=== PATIENT | male | born 1955 | race Caucasian/White ===

== ENCOUNTER → 2017-03-14 08:51 | Outpatient (CLI) | payer BC, SELFPAY ==
--- NOTE | 2017-03-14 08:57 | CT_ITS ---
STUDY: CT PARANASAL SINUSES WITH CONTRAST REASON FOR EXAM: Male, 62 years old. Sinusitis. RADIATION DOSAGE (If Supplied By Facility): CTDIvol = ( 33.06 ) mGy, DLP = ( 854.51 ) mGycm TECHNIQUE: The patient was scanned in a multi-detector CT scanner. High resolution transaxial imaging was performed following the intravenous administration of 100CC ml of Isovue 300 contrast material. Sagittal and coronal images were reconstructed. Individualized dose optimization techniques were used for this CT. COMPARISON: None. FINDINGS: FRONTAL SINUSES: Mild mucosal hypertrophy in the right frontal sinus. The left frontal sinus is clear. ETHMOIDAL SINUSES: Moderate mucosal hypertrophy bilaterally. MAXILLARY SINUSES: 0.6 x 0.4 cm polyp in the inferior medial aspect of the left maxillary sinus (image 72 series 4). The bilateral maxillary sinuses are otherwise clear. SPHENOIDAL SINUSES: Normal aeration of the bilateral sphenoid sinuses and there is no mucosal inflammatory disease. NASAL SEPTUM: There is rightward deviation of the nasal septum. Normal anterior cranial fossa, paco taco and cribriform plate. Normal bilateral orbital contents. There is opacification of the bilateral mastoid air cells. The visualized soft tissues are within normal limits. There is no fluid collection. There is no demonstrated enhancing soft tissue or osseous abnormality. CT/Sinus/Facial Bone WITH Contras IMPRESSION: Subcentimeter polyp in the left maxillary sinus. Mucosal hypertrophy in the bilateral ethmoid sinuses and right frontal sinus. Opacification of the mastoid air cells bilaterally. Electronically Signed: Solo Giraldo, at 10:20 EST Tel , Service support ,
[2017-03-14 09:16] LABS: CREATININE FINGERSTICK 1.4 mg/dL (0.70-1.30)
== END ==
PROVIDERS: Family Provider Family Medicine; PCP Family Medicine; Visit Provider Otolaryngology Otolaryngology/Facial Plastic Surgery
DX: H65.02 Acute serous otitis media, left ear (principal); J39.2 Other diseases of pharynx
CPT/HCPCS: 70487; Q9967

== ENCOUNTER 2017-04-21 09:57 | Day surgery (SDC) | payer BC, SELFPAY ==
--- NOTE | 2017-04-13 11:06 | EKG12_ITS ---
Test Reason : PRE-OP Blood Pressure : / mmHG Vent. Rate : 059 BPM Atrial Rate : 059 BPM P-R Int : 200 ms QRS Dur : 114 ms QT Int : 412 ms P-R-T Axes : 061 012 018 degrees QTc Int : 407 ms Sinus bradycardia Otherwise normal ECG Confirmed by MAKSIM PETERSON, RITU ([id number]), loan expeditor STUART MELENDEZ ([id number]) on 04/14/2017 4:14:51 PM Referred By: Bruce Hopkins Confirmed By:RITU SCHAEFFER MD
[2017-04-13 11:52] LABS: Anion Gap 7 (5-15); BUN 14 mg/dL (7-18); BUN/Creat Ratio 14.5 RATIO (10-20); Calcium,Total 9.3 mg/dL (8.5-10.1); Chloride 107 mmol/L (98-107); Creatinine, Serum 0.96 mg/dL (0.70-1.30); EST Glomerular Filtration Rate 83 mL/min (>60); Est Glom Filt Rate - Afr Amer 101 mL/min (>60); Glucose 85 mg/dL (74-106); Potassium 4.4 mmol/L (3.5-5.1); Sodium Level 139 mmol/L (136-145)
[2017-04-21 10:13] VITALS: BP 119/79; PULSE 69; RESP 16; TEMP 36.4; O2SAT 96; BMI 31.1
--- NOTE | 2017-04-21 10:59 | PCM.DC ---
You will use the following diet at home:: No restrictions Discharge Activity: Return to Normal Activity Call your doctor if your incision/area has: Increased Pain/ Swelling Allergies/Adverse Reactions: Allergies Sulfa (Sulfonamide Antibiotics) Allergy (Verified 04/14/17 12:55) Other CHILD, UNKNOWN Medications to take at Discharge Atorvastatin Calcium [Lipitor] 40 mg PO QHS 05/02/14 Carvedilol [Coreg (Beta Jossy)] 12.5 mg PO BID 05/02/14 Valsartan [Diovan] 80 mg PO DAILY 05/02/14 Fexofenadine HCl [Candice Allergy] 180 mg PO DAILY 04/14/17 Triamcinolone Acetonide [Nasacort] 1 spray NS DAILY 04/14/17 Primary Care Physician: Arline Medina DO [Primary Care Provider] - Please Follow Up With: Bruce Hopkins MD When: 3 weeks
--- NOTE | 2017-04-21 11:00 | PCM.OPRPT ---
Problem List (1) Eustachian tube dysfunction Status: Chronic Report of Operation Date of Procedure: 04/21/17 Pre-Operative Diagnosis: 1. chronic serous otitis, right and left. 2. eustachian tube dilation, right and left. 3. nasopharyngeal mass Post-Operative Diagnosis: 1. chronic serous otitis, right and left. 2. eustachian tube dysfunction, right and left. 3. nasopharyngeal mass Surgery/Procedure Performed:: 1. placement of pressure equalization tubes, right and left. 2. eustachian tube dilation, right and left. 3. nasopharyngeal biopsy Type of Anesthesia:: General Specimen's removed: nasopharyngeal mass Drains: none Estimated Blood Loss (mL): 2cc Description of Procedure: on the day of the procedure, after appropriate informed consent was obtained, the patient was brought to the operating room and placed in supine position on the operating room table. he was placed under general endotracheal anesthesia, the tube was secured, the eyes were taped. the bilateral nasal cavities were decongested with oxymetazoline soaked pledgets. the right ear was examined with the binocular operating microscope. a speculum was placed. the tympanic membrane was viewed in its entirety and found to be intact. a radial myringotomy was made inferiorly and a T-tube was placed. floxin otic drops were instilled. the left ear was examined with the binocular operating microscope. a speculum was placed. the tympanic membrane was viewed in its entirety and found to be intact. a radial myringotomy was made inferiorly and a T-tube was placed. floxin otic drops were instilled. a zero degree endoscope was placed into the nasopharynx. a cystic mass was biopsied and decompressed. this contained murky serous fluid. biopsies were sent. a 30 degree endoscope was inserted into the left nasal cavity. the acclarent AERA system was advanced and inserted into the left eustachian tube orifice until a soft stop was felt. this was inflated to 12atm for 2 minutes and retracted. a 30 degree endoscope was inserted into the right nasal cavity. the acclarent AERA system was advanced and inserted into the left eustachian tube orifice until a soft stop was felt. this was inflated to 12atm for 2 minutes and retracted. the patient was awoken from general anesthesia and transferred to the PACU in stable condition. Grafts/Implants Used: none
[2017-04-21] MEDS: Ciprofloxacin 0.3% 2.5ml Bottle 1 DRP (11:41)
[2017-04-21] MEDS: Oxymetazoline 0.05% 1 SPRAY SPRAY.BTL 15 SPRAY (11:50)
--- NOTE | 2017-04-21 11:50 | NASAL_PTH ---
PATIENT: KEYSHA BENNETT LOC[place] [facility] [place] U[place][id number] AGE/SX: 62/M ROOM: RE04/21/[address]: Dr. Danny Hopkins MD : 1955 BED: DIS: 04/21/2017 SPEC #: [id number] RECD: 04/21/17 13:02 STATUS: MOUSTAPHA BARBARA #: [id number] NEEMA: 04/21/17 11:[address]: Danny Hopkins DEPT: SURGICAL PATHOLOGY RECD BY: Heriberto Duarte ENTERED: 04/21/17 14:24 SP TYPE: NASAL SPEC OTHR DR: Dr. Arline Medina DO Tissues: Nasopharynx, NOS Procedures: Special Stain Group I Surgery Specimen Level IV GMS Stain (control) HEADER OPERATION: Eustachian tube dilatation BMT, bilateral; nasopharyngeal biopsy PRE-OP DIAGNOSIS: Chronic serous otitis media; disorders of eustachian tube, bilateral; neoplasm of uncertain behavior of nasopharynx TISSUE SUBMITTED: Nasopharyngeal biopsy MICROSCOPIC DIAGNOSIS Nasopharyngeal lesion, biopsy: Fragments of respiratory mucosa with acute and chronic inflammation and histiocytic reaction. Negative for malignancy. Special stain for fungi is negative for organisms; matched control is appropriate. SJ:rossy 04/22/17 MICROSCOPIC DESCRIPTION Slides are reviewed. GROSS DESCRIPTION Received in fixative is one container labeled with the patient's name and designated nasopharyngeal biopsy. The specimen consists of two irregular fragments of pink-charles soft tissue that in aggregate measure 1 x 0.6 x 0.1 cm. The specimen is totally submitted in one cassette. / AM:rossy 04/21/17 TC:3 CPT: 90081, 82135
[2017-04-21 12:15] VITALS: BP 119/79; BP 128/76; PULSE 62; RESP 18; TEMP 36.1; O2SAT 94
[2017-04-21 12:32] VITALS: BP 119/79; BP 135/73; PULSE 60; RESP 18; TEMP 36.3; O2SAT 97
[2017-04-21 13:02] VITALS: BP 119/79
== END 2017-04-21 13:10 | disposition home or self-care (01) ==
LOC: SDC 10:00 → AC 10:00
PROVIDERS: Visit Provider Otolaryngology
PROC: (CPT 69799; principal; 2017-04-21 11:20)
DX: H69.83 Other specified disorders of Eustachian tube, bilateral (principal); H65.23 Chronic serous otitis media, bilateral; D37.05 Neoplasm of uncertain behavior of pharynx; I10 Essential (primary) hypertension; E78.00 Pure hypercholesterolemia, unspecified; F17.210 Nicotine dependence, cigarettes, uncomplicated; Z79.899 Other long term (current) drug therapy; Z85.528 Personal history of other malignant neoplasm of kidney; Z96.643 Presence of artificial hip joint, bilateral
CPT/HCPCS: 00126; 42999; 69436; C9745; 36415; 80048; 88305; 88312; J3010; J7120; J2405

== ENCOUNTER → 2017-09-18 15:27 | Outpatient (CLI) | payer BC, SELFPAY | PROVIDERS: Visit Provider Otolaryngology | DX: H92.10 Otorrhea, unspecified ear (principal) | CPT/HCPCS: 87070; 87075; 87077; 87186; 87205 ==

== ENCOUNTER → 2019-05-02 10:49 | Outpatient (CLI) | payer MEDICARE, SELFPAY ==
[2019-05-06 16:24] LABS: Arsenic 7245 7 ug/L (2-23); Lead, Blood 2 ug/dL (0-4)
== END ==
PROVIDERS: Visit Provider Orthopaedic Surgery
DX: T84.84XD Pain due to internal orthopedic prosthetic devices, implants and grafts, subsequent encounter (principal); Z96.643 Presence of artificial hip joint, bilateral
CPT/HCPCS: 36415; 82175; 83655; 83825

== ENCOUNTER → 2019-06-13 09:55 | Outpatient (CLI) | payer MEDICARE, SELFPAY ==
[2019-06-13 10:36] LABS: Absolute Lymphocyte Count 4.43 X10^3/uL (0.83-4.51); Absolute Neutrophil Count 7.2 X10^3/uL (2.0-7.7); Basophil# 0.09 X10^3/uL; Basophil% 0.7 % (0-1); Eosinophil# 0.46 X10^3/uL; Eosinophils% 3.5 % (0-5); Hematocrit 49.5 % (40-54); Lymphocyte # 4.43 X10^3/ul (4.0); Lymphocyte % 33.9 % (19-41); Mean Corp Hgb Conc 32.3 g/dL (32-36); Mean Corpuscular Hgb 28.3 pg (27.0-32.0); Mean Corpuscular Volume 87.5 fL (80-94); Mean Platelet Vol. 9.1 fl (6.2-12.0); Monocyte# 0.79 X10^3/uL; NRBC Flagged by Analyzer 0 % (0-5); Neutrophil # 7.24 X10^3/uL (2.7-7.7); Neutrophil % 55.4 % (47-70); Platelet Count 556 K/mm3 (150-450); RBC Distribution Width CV 17.1 % (11.6-14.6); RBC Distribution Width SD 50.7 fl (35.1-43.9); Red Blood Count 5.66 M/mm3 (4.6-6.2); White Blood Count 13.1 K/mm3 (4.4-11.0)
[2019-06-13 10:46] LABS: Erythrocyte Sedimentation Rate 50 mm/hr (0-20)
[2019-06-13 10:57] LABS: CRP 5.72 mg/L (0.0-3.0)
== END ==
PROVIDERS: Referring Provider Specialist; Visit Provider Specialist
DX: T84.84XA Pain due to internal orthopedic prosthetic devices, implants and grafts, initial encounter (principal)
CPT/HCPCS: 36415; 85025; 85652; 86140

== ENCOUNTER → 2019-06-21 09:17 | Outpatient (CLI) | payer MEDICARE, SELFPAY ==
--- NOTE | 2019-06-21 09:24 | RAD_ITS ---
PROCEDURE: Fluoroscopic guided left hip aspiration. DATE: June 21, 2019. INDICATION: Male, 64 years old. Left hip pain. Prior left hip replacement. PHYSICIAN: Manan Alexis M.D. ACCESS SITE: Left hip. NEEDLE: 22-gauge spinal needle. FLUOROSCOPY TIME (if supplied): (0:40) minutes/seconds. One image was obtained. FINDINGS: The risks, benefits, and alternatives to the procedure were explained to the patient. The specific risks of bleeding, infection, and neurovascular injury were detailed and accepted. Witnessed informed consent was obtained. A 22-gauge spinal needle was positioned under radiographic fluoroscopic localization. Approximately 2 cc of Isovue-300 instilled for localization purposes. Aspiration was performed. No fluid was aspirated. The patient tolerated the procedure well without any immediate complications. RAD/Inj/Asp Han Jt Should/Hip/Knee IMPRESSION: No aspirate was obtained. Electronically Signed: Manan Alexis, at 10:20 EDT , Service support ,
== END ==
PROVIDERS: Referring Provider Specialist; Visit Provider Specialist
DX: T84.84XD Pain due to internal orthopedic prosthetic devices, implants and grafts, subsequent encounter (principal)
CPT/HCPCS: 20610; 77002; Q9967

== ENCOUNTER 2019-07-20 08:20 | Inpatient (IN) | payer MEDICARE, SELFPAY ==
--- NOTE | 2019-07-08 11:12 | EKG12_ITS ---
Test Reason : PREOP Blood Pressure : / mmHG Vent. Rate : 060 BPM Atrial Rate : 060 BPM P-R Int : 194 ms QRS Dur : 106 ms QT Int : 416 ms P-R-T Axes : 046 018 011 degrees QTc Int : 416 ms Normal sinus rhythm Normal ECG Confirmed by JENNY HERNANDEZ ([id number]), book editor STUART MELENDEZ ([id number]) on 07/11/2019 11:12:56 AM Referred By: MOSES CASILLAS Confirmed By:JENNY HERNANDEZ
[2019-07-08 11:28] LABS: Absolute Lymphocyte Count 3.65 X10^3/uL (0.83-4.51); Absolute Neutrophil Count 7.7 X10^3/uL (2.0-7.7); Basophil# 0.08 X10^3/uL; Basophil% 0.6 % (0-1); Eosinophils% 3.1 % (0-5); Lymphocyte # 3.65 X10^3/ul (4.0); Lymphocyte % 28.6 % (19-41); Mean Corpuscular Hgb 28.3 pg (27.0-32.0); Mean Corpuscular Volume 88.3 fL (80-94); Mean Platelet Vol. 9.3 fl (6.2-12.0); Monocyte# 0.89 X10^3/uL; NRBC Flagged by Analyzer 0 % (0-5); Neutrophil # 7.68 X10^3/uL (2.7-7.7); Neutrophil % 60.3 % (47-70); Platelet Count 624 K/mm3 (150-450); RBC Distribution Width SD 51.2 fl (35.1-43.9); Red Blood Count 5.66 M/mm3 (4.6-6.2); White Blood Count 12.8 K/mm3 (4.4-11.0)
[2019-07-08 12:13] LABS: ALB/GLOB Ratio 0.8 RATIO (0.9-2.4); AST(SGOT) 18 U/L (15-37); Alanine Aminotransfer ALT/SGPT 26 U/L (16-61); Albumin, Serum 3.5 g/dL (3.2-5.0); Alkaline Phosphatase 87 U/L (45-117); Anion Gap 3 (5-15); BUN 15 mg/dL (7-18); BUN/Creat Ratio 15.4 RATIO (10-20); Calcium,Total 9.5 mg/dL (8.5-10.1); Chloride 107 mmol/L (98-107); Creatinine, Serum 0.97 mg/dL (0.70-1.30); EST Glomerular Filtration Rate 82 mL/min (>60); Est Glom Filt Rate - Afr Amer 99 mL/min (>60); Globulin 4.4 g/dL (2.2-4.2); Glucose 98 mg/dL (74-106); Potassium 4.3 mmol/L (3.5-5.1); Protein, Total 7.9 g/dL (6.4-8.2); Sodium Level 140 mmol/L (136-145)
--- NOTE | 2019-07-10 12:03 | PCM.HP.BLA ---
History and Physical History and Physical Patient Name: Sal See : 1955 From: ARLINE WATTS NP DATE OF SURGERY: 07/20/2019 SCHEDULED PROCEDURE: Left posterior total hip arthroplasty revision with possible osteotomy HISTORY OF PRESENT ILLNESS: Preoperative history and physical exam was performed on July 08, 2019. This is a 64-year-old male who has been having left hip pain since August 2018. The patient's initial left total hip arthroplasty was done by Dr. Sal Lopez in December 2010. The patient describes his pain as constant and sharp. His pain is 3 on a scale of 10 on average. The pain is located over the lateral hip. The patient reports the inability to perform leisure activities, activities of daily living and dressing without pain. The pain is made worse with stairs and rising from a sitting position. The patient has experienced ringing in his years. He denies metallic taste in his mouth. The patient did have a polyp removed and tubes placed by an ENT, this has not relieved the ringing in his ear's. Previous conservative measures attempted include rest and nonsteroidal anti-inflammatories. Surgical clearance will be obtained from his primary care provider, Arline Medina. He denies chest pain, fevers, chills, shortness of breath, difficulty breathing or recent infections. The patient has a medical history pertinent for hypertension, history of kidney stones and hypercholesterolemia. The patient did have a right partial nephrectomy in 2006. After failing conservative measures and discussing treatment options with Dr. Solo Reeder the patient does wish to proceed with a left total hip arthroplasty revision with possible osteotomy. REVIEW OF SYSTEMS: ROS: Const: Denies anorexia, change in appetite, fever, hard of hearing, vision problems and weight change. CV: Reports heart murmur and irregular heartbeat, but denies chest pain and peripheral vascular disease. Resp: Denies asthma, cough, pneumonia, sleep apnea, SOB, tuberculosis and wheezing. GI: Denies constipation, diarrhea, difficulty swallowing, heartburn, nausea, bloody stools and vomiting. : Urinary: denies incontinence. Musculo: Reports limp, but denies leg swelling, trouble walking and weakness. Skin: Reports tattoo, but denies Raynaud's and history of shingles. Neuro: Denies ambulatory dysfunction, dizziness, numbness/tingling and tremor. Psych: Denies anxiety, depression, insomnia, mental illness and stress. Jefferson/Lymph: Denies anemia, bleeding/bruising tendency and past transfusion. Reviewed and updated. PAST MEDICAL HISTORY: Advance Care Plan: No Advance Directives Effective Date: 05/26/2017 PMH: Medical Problems: Arthritis, High Blood Pressure, Kidney Stones, Hypercholesterolemia Accidents: R Hand Surgical Hx: Kidney Stones - (2009) YULIA Tonsillectomy - (1960) KIMBROUGH LT THR - (12/16/2010) [facility] RT THR - (05/15/2014) [facility] @ [facility] Tubes In Ears - APRIL 2017 Hernia Repair - (04/2018) [facility] RT Partial Neuphrectomy - (2006) Anesthesia Complications: None Assistive Devices: Glasses Reviewed and updated. SOCIAL HISTORY: SH: Marital: .Occupation: Retired.Work Status: Retired.Hand Dominance: Ambidextrous. Personal Habits: Cigarette Use: Currently smokes - 1 PACK/DAY FOR 40 YEARS.Alcohol: Occasionally.Drug Use: Former Illegal Drug User - MARIJUANA.Enjoy Exercising: Exercises 1-3 x/month. Reviewed and updated. VITALS: Ht: 73 Wt: 250lb Wt k.400 BMI: 33.0 BP: 140/80 Pulse: 68 Resp: 16 T: 97.6 T: 36.4C ALLERGIES: Sulfa MEDICATIONS: Lipitor 40 mg 1 tab PO daily, Coreg 25 mg 1/2 tab PO bid, Losartan Potassium 100 mg 1 by mouth every day, Aleve 220 mg prn PRE-OP EXAM: General appearance:NORMAL Other: Eyes: Conjunctivae and lids: NORMAL Pupils: ERR Ears, Nose, Mouth, and Throat: NORMAL Other: Inspection of lips, teeth and gums: NORMAL Other: Respiratory: Assessment of respiratory effort: NORMAL Other: Auscultation of lungs: clear to auscultation no wheezes, rhonchi or rales. Cardiovascular: Auscultation of heart: regular rate and rhythm, no murmurs, gallops or rubs. Gastrointestinal: Exam of abdomen: soft, nontender, nondistended bowel sounds present. Neurological: see below Psychiatric: Orientation to time, place and person: NORMAL Other: Mood and affect: NORMAL Other: PHYSICAL EXAMINATION: The patient ambulates with an antalgic gait. Left posterior hip incision is well-healed with no warmth, erythema or signs of infection. Leg lengths are equal. The patient has full left hip range of motion but with pain. Positive logroll on the left. Neurovascularly intact. Sensation intact to light touch. IMAGING STUDIES: X-rays of left hip obtained on April 19, 2019 reveal a stable well-placed left total hip replacement. Leg lengths are equal with bilateral hip replacements. Offset is appropriate. Left hip replacement is a modular neck implant. Implant appears to be well fixed. MRI obtained on May 26, 2019 reveals a small joint effusion and metallosis with a large pseudomass from the joint into the lateral structures. IMPRESSION: 1. Pain due to internal orthopedic implants 2. Presence of a left artificial hip joint 3. Hypertension 4. Hypercholesterolemia 5. History of kidney stones with right partial nephrectomy in 2006 6. Nicotine dependence PLAN: Extensive discussion with Dr. Solo Reeder regarding the painful left total hip replacement and revision hip replacement surgery. The patient does wish to proceed with the above-stated procedure. Potential risk, benefits and complications of the procedure were discussed in detail including but not limited to , infection, nerve and blood vessel damage, persistent pain, numbness, tingling, paresthesia, blood clot, pulmonary embolism and requirement for possible further surgery. The patient expressed full understanding and has no further questions for the doctor. The patient does agree to proceed with the above-stated procedure and has signed the surgery consent form. The patient will bring a walker to the hospital the day of surgery. Discussed with the patient the risks associated with the COVID-19 virus including the risk of exposure while at the hospital. The patient was reassured local hospitals have low infection rates and taken all necessary precautions to limit patient exposure to COVID-19. Limiting the patient's time in the hospital may decrease their exposure to COVID-19. The patient was notified that we will need to comply with any screening or testing the hospital wishes to perform and that surgery may be delayed for any positive test results. This dictation was created using voice recognition software. Phonetic and/or grammatical errors may exist. ___ I have re-examined the patient. There are no clinical changes since date of exam. ___ See progress notes for changes. ___ Dictated on admission Date: Time: Signature:
[2019-07-20] VITALS (10 sets, daily range): BP systolic 117–156; BP diastolic 61–90; PULSE 44–72; RESP 14–18; TEMP 35.4–36.4; O2SAT 94–100; BMI 32.5
[2019-07-20 08:50] LABS: Bedside Glucose 91 mg/dL (70-110)
[2019-07-20] MEDS: Acetaminophen 500 MG Tablet 1000 MG PO ×3 (09:00→22:00)
[2019-07-20] MEDS: Gabapentin 600 MG Tablet PO (09:01)
[2019-07-20] MEDS: Scopolamine 1mg/72hr Patch 1 PATCH TRANSDERM. (09:01)
[2019-07-20] MEDS: Lactated Ringers 1,000 ML 999 ML IV ×2 (09:05→13:56)
[2019-07-20] MEDS: Lactated Ringers 1,000 ML 75 ML IV (09:14)
[2019-07-20] MEDS: Lactated Ringers 1,000 ML 125 ML IV (10:05)
--- NOTE | 2019-07-20 10:30 | HIP_PTH ---
PATIENT: KEYSHA BENNETT LOC: [facility] U#:[id number] AGE/SX: 64/M ROOM: [facility] RE07/20/[address]: Dr. Solo Reeder MD : 1955 BED: 1 DIS: 07/21/2019 SPEC #: [id number] RECD: 07/20/19 13:44 STATUS: MOUSTAPHA REKatie #: [id number] NEEMA: 07/20/19 10:[address]: Solo Reeder DEPT: SURGICAL PATHOLOGY RECD BY: Sumeet Casper ENTERED: 07/21/19 08:23 SP TYPE: TOTAL HIP OTHR DR: Dr. Arline Medina, Tissues: Hip, NOS Procedures: Surgery Specimen Level III HEADER OPERATION: Posterior revision total hip arthroplasty PRE-OP DIAGNOSIS: Pain due to internal orthopedic implants; presence of left artificial hip joint TISSUE SUBMITTED: Pseudotumor left hip MICROSCOPIC DIAGNOSIS Pseudotumor left hip, revision total hip arthroplasty: Pieces of fibroconnective tissue with necrosis and fibrinous exudation. GUMARO:rossy 07/22/19 MICROSCOPIC DESCRIPTION Slides are reviewed. GROSS DESCRIPTION Received in fixative is one container labeled with the patient's name and designated pseudotumor left hip. The specimen consists of multiple pieces of charles-greenish to yellow soft tissue that in aggregate measure 7 x 7 x 3 cm. No well defined mass lesion is identified. Driver Wheelchair sections are submitted in two cassettes. / GUMARO:rossy 07/21/19 TC:5 CPT: 90636
[2019-07-20] MEDS: Cefazolin 2 GM in 0.9% Normal Saline 100 ML IV (10:55)
[2019-07-20] MEDS: Heparin 10,000 UNITS/10 ML Vial 10000 UNITS (10:55)
--- NOTE | 2019-07-20 13:13 | RAD_ITS ---
STUDY: X-RAY - PELVIS AND LEFT HIP REASON FOR EXAM: Male, 64 years old. Left hip replacement. TECHNIQUE: 2 views of the pelvis and hip. COMPARISON: Comparison is made with prior study dated May 15, 2014. FINDINGS: The patient is status post left hip replacement. There is good alignment. Postoperative soft tissue changes. RAD/Hip Min 2 Views (Portable) IMPRESSION: Status post left hip replacement. There is good alignment. Postoperative soft tissue changes. Electronically Signed: Manan Alexis, at 14:49 EDT , Service support ,
--- NOTE | 2019-07-20 13:14 | PCM.OPRPT ---
Report of Operation Date of Procedure: 07/20/19 Pre-Operative Diagnosis: Failed left total hip replacement, pseudotumor Post-Operative Diagnosis: Failed left total hip replacement, pseudotumor Surgery/Procedure Performed:: 1. Pseudotumor excision left hip. 2. Left hip revision both components Description of Surgical Findings:: Stable hip with equal leg lengths. Complete excision of pseudotumor. tanning solution maker: Cisco Wang tanning solution maker: Yun Montgomery Type of Anesthesia:: Spinal Anesthesiologist: Sunny Lyane Special Medications: 2 g Ancef, 1 g TXA at incision, 1 g TXA closure, 10 mg Decadron, joint cocktail (5 mg Duramorph, 30 mL of 0.5% Ropivicaine, 1000 units of epinephrine, 30 mg of Toradol) Specimen's removed: Pseudotumor sent for pathology, 3 separate specimens were sent to microbiology. Estimated Blood Loss (mL): 250 Fluids Replaced: 1200 Description of Procedure: Findings: Adequate reduction with stability of the hip and equal leg lengths measured intraoperatively. Components used: 1. Femur: Pop confucianist modular 18mm x 155 millimeters stem. 27 mm, +0 mm cone body. 2. Pop X3 polyethylene liner, 10 degree hooded liner alpha code F 3. Phyllis Biolox delta 36 mm, +2.5 mm neck femoral head Brief history operative indications: 64-year-old male who had a left total hip replacement in 2011 with a modular neck stem. Patient developed pain. MRI was consistent with pseudotumor patient had elevated cobalt and chromium levels. At this time we did discuss proceeding with the revision hip replacement. Risks and benefits were discussed with the patient which included but were not limited to blood loss, DVTs, PEs, infection, neurovascular damage, and dislocation. In light of all this patient did agree to proceed with a revision left total hip arthroplasty. Procedure: On the date of procedure the patient's L hip was marked in the preoperative area. Patient was then taken back to the operating room where anesthesia assumed control of the C-spine and airway and administered anesthetic. Patient was transferred to the operating table and placed in the lateral decubitus position with the affected hip up. The patient was secured in the bed with the lateral positioners and leg lengths were checked. The L lower extremity was then prepped out in a sterile fashion using chlorhexidine while the surgeon scrubbed. Upon reentering the room the L lower extremity was draped in the standard orthopedic fashion and the incision was marked. A timeout was called and everyone agreed upon the side, the site, the procedure be performed, antibiotics given, and patient's identity. At this time incision was made through skin, subcutaneous tissue, and fat down to fascia. The fascia was then incised and a Charley retractor was placed. At this time it was noted that there was a area of necrotic tissue consistent with pseudotumor. This was carefully debrided in totality. This was sent to pathology for examination. There was roughly 10 cm x 6 cm x 6 cm. We made clear fascial layers. Once we debrided the pseudotumor a synovectomy was performed. The hip was dislocated. Attention was then turned to the femur where the femoral component was extracted. Femoral head was first removed using a bone tamp. Then the modular neck was removed using the removal device. Then we were able to get around the bone ingrowth portion of the femoral implant using burs and osteotomes. Extractor was placed on the proximal femur and it was removed. We were able to remove it without any fractures. Once this was done we sequentially reamed the femoral canal to a 18 mm stem. In prepping the canal we did send reamings for culture. Our attention was then directed to the acetabulum and the anterior retractor was placed and a Zelpi was used to retract the posterior capsule superiorly. The acetabulum was inspected. Based on the 8 years of polyethylene wear we elected to change the polyethylene liner. The wound was then copiously irrigated out with normal saline 6 L in total. After this was done the 18 mm femoral stem was impacted into place. We then reamed the proximal femur for the 27 mm cone body. We then trialed with a +0 mm body and a +2.5 mm neck length. This gave us a stable hip with equal leg lengths. There was not too much tension on the quadriceps. There was minimal shuck. Hip can be flexed to 90 degrees and internally rotated to 45 degrees without dislocation. Trial was then dislocated. The proximal femur was again exposed and the trial components were removed from the wound. The final components were verified and opened. The wound was copiously irrigated out with normal saline. The acetabulum was checked for any residual debris. The previous acetabular liner was removed using an osteotome. The wound was copiously out normal saline. Final acetabular liner was then impacted into place. The final femoral components were placed and impacted. Traction and external rotation were again used to reduce the hip. After adequate reduction the hip remained stable with appropriate leg lengths. A sliding knot was used to tighten both down sequentially. Hip was taken through range of motion and the repair was stable. After both were adequately tightened compressing the bone The wound was then copiously irrigated with normal saline once more, and hemostasis was obtained. The posterior structures were not repairable. Closure was then done using #1 Vicryl to close the fascia. A 2-0 Vicryl interrupted sutures were used to close the subcutaneous skin. Skin katlyn were used for final skin closure. A sterile dressing was placed. Patient was awakened by anesthesia and transferred to the [facility] [place]. Patient was then transferred to the PACU for recovery. Postoperative plan: Patient will get 24 hours postop antibiotics. Patient will get in-house physical therapy and will be weight-bear as tolerated. Patient will follow up in office in 2 weeks for a wound check and x-rays. Patient will receive 1 week of doxycycline as we follow intraoperative cultures. During the course of the procedure the physician faculty member (PE) played a vital role. Their intimate knowledge of my steps in the procedure aided in safe and expedient completion of the procedure. The PE played a vital rolls in positioning particularly in obtaining the appropriate positioning of the lateral decubitus position. The PE was also vital in the retraction of soft tissues during the exposure and especially the femoral work as this is a vital part of the procedure to prevent complications and fractures. The PE was also vital and protecting soft tissues during times of bony cuts and reaming. He also played a vital role in closure with my direct supervision. The PE was also important during reduction and dislocation of the joint and trials intraoperatively. Grafts/Implants Used: Phyllis - Complications No intraoperative complications - Admit VTE Documentation VTE Present on Admission: No VTE Mechan Device Prophylaxis: SCD's, Thigh High JEAN Hose VTE Pharm Prophylaxis ordered?: Yes
[2019-07-20] MEDS: Ensure Surgery 237 ML LIQUID PO (16:11)
[2019-07-20] MEDS: Cefazolin 1 GM/50 ML BAG IV (18:24)
[2019-07-20] MEDS: Aspirin 81 MG TAB.CHEW PO (18:24)
[2019-07-20] MEDS: Senna/Docusate Sodium 1 Tablet 2 TABLET PO (22:00)
[2019-07-20] MEDS: Carvedilol 12.5 MG Tablet PO (22:01)
[2019-07-20] MEDS: Doxycycline 100 MG CAPSULE PO (22:01)
[2019-07-20] MEDS: Atorvastatin Calcium 40 MG Tablet PO (22:04)
[2019-07-21 03:10] VITALS: BP 145/78; PULSE 56; RESP 18; TEMP 36.5; O2SAT 99
[2019-07-21] MEDS: Cefazolin 1 GM/50 ML BAG IV (03:14)
[2019-07-21] MEDS: Acetaminophen 500 MG Tablet 1000 MG PO ×2 (06:10→13:29)
[2019-07-21 06:27] LABS: Hematocrit 36.7 % (40-54); Hemoglobin 11.8 g/dL (13.0-16.5); Mean Corp Hgb Conc 32.2 g/dL (32-36); Mean Corpuscular Volume 87.2 fL (80-94); Mean Platelet Vol. 9.2 fl (6.2-12.0); Platelet Count 495 K/mm3 (150-450); RBC Distribution Width CV 16.1 % (11.6-14.6); RBC Distribution Width SD 50.1 fl (35.1-43.9); Red Blood Count 4.21 M/mm3 (4.6-6.2); White Blood Count 22.8 K/mm3 (4.4-11.0)
[2019-07-21 06:52] LABS: Anion Gap 7 (5-15); BUN 18 mg/dL (7-18); BUN/Creat Ratio 20.9 RATIO (10-20); Calcium,Total 9.1 mg/dL (8.5-10.1); Chloride 106 mmol/L (98-107); Creatinine, Serum 0.86 mg/dL (0.70-1.30); EST Glomerular Filtration Rate 94 mL/min (>60); Est Glom Filt Rate - Afr Amer 114 mL/min (>60); Estimated Creatinine Clearance 98.24 ml/min; Glucose 140 mg/dL (74-106); Potassium 4.5 mmol/L (3.5-5.1); Sodium Level 139 mmol/L (136-145)
[2019-07-21] MEDS: Aspirin 81 MG TAB.CHEW PO (08:08)
[2019-07-21] MEDS: Famotidine 20 MG Tablet PO (08:08)
[2019-07-21] MEDS: Senna/Docusate Sodium 1 Tablet 2 TABLET PO (08:08)
[2019-07-21] MEDS: Loratadine 10 MG Tablet PO (08:08)
[2019-07-21] MEDS: Losartan Potassium 100 MG Tablet PO (08:09)
[2019-07-21] MEDS: Fluticasone 0.05% 1 SPRAY NASAL.SRY 2 SPRAY NASAL (08:09)
[2019-07-21] MEDS: Carvedilol 12.5 MG Tablet PO (08:10)
[2019-07-21] MEDS: Doxycycline 100 MG CAPSULE PO (08:10)
[2019-07-21] MEDS: Ensure Surgery 237 ML LIQUID PO ×2 (08:10→11:45)
[2019-07-21 08:14] VITALS: BP 157/68; PULSE 52; RESP 18; TEMP 36.4; O2SAT 98
--- NOTE | 2019-07-21 08:44 | PCM.PN.ORT ---
Subjective: The patient was sitting in bedside chair upon examination. Patient denies any chest pain, shortness of breath, dizziness, lightheadedness, nausea or vomiting, or calf pain. Pain is controlled on medications. No adverse overnight events. Overall patient is doing very well from the revision left total hip procedure. Patient is only requiring Tylenol for pain control. Objective: Vital signs stable and afebrile. Patient is able to plantarflex and dorsiflex actively. Sensation is intact to light touch to saphenous, sural, superficial and deep peroneal, and tibial distribution. Dressing is clean dry and intact. Negative Homans bilaterally, negative signs and symptoms of DVT. - Physical Exam Vitals/I&O's: Vital Signs Temp Pulse Resp BP Pulse Ox 97.6 F L 52 L 18 157/68 H 98 07/21/19 08:14 07/21/19 08:14 07/21/19 08:14 07/21/19 08:14 07/21/19 08:14 Oxygen Flow Rate (L/min) 6 Oxygen Delivery Method Room Air Weight: 114.8 kg Body Mass Index (BMI) 32.5 Intake and Output for Last 24 Hours 07/19/19 07/20/19 07/21/19 23:59 23:59 23:59 Intake Total 4700 / 4700 750 / 750 Balance 4700 / 4700 750 / 750 General: Alert, Oriented x3, Cooperative, No apparent distress Laboratory Results 07/20/19 08:45: POC Glucose 91 07/21/19 06:10: WBC 22.8 H, RBC 4.21 L, Hgb 11.8 L, Hct 36.7 L, MCV 87.2, MCH 28.0, MCHC 32.2, RDW Std Deviation 50.1 H, RDW Coeff of Monse 16.1 H, Plt Count 495 H, MPV 9.2 07/21/19 06:10: Sodium 139, Potassium 4.5, Chloride 106, Carbon Dioxide 26.0, Anion Gap 7, BUN 18, Creatinine 0.86, Estim Creat Clear Calc 98.24, Est GFR (MDRD) Af Amer 114, Est GFR (MDRD) Non-Af 94, BUN/Creatinine Ratio 20.9 H, Glucose 140 H, Calcium 9.1 Current Medications Acetaminophen (Tylenol) 1,000 mg PO Q8 CAT Last Admin: 07/21/19 06:10 Dose: 1,000 mg Documented by: Aspirin (Aspirin, Baby) 81 mg PO BIDCM [facility] Last Admin: 07/21/19 08:08 Dose: 81 mg Documented by: Atorvastatin Calcium (Lipitor) 40 mg PO QHS [facility] Last Admin: 07/20/19 22:04 Dose: 40 mg Documented by: Carvedilol (Coreg) 12.5 mg PO BID [facility] Last Admin: 07/21/19 08:10 Dose: 12.5 mg Documented by: Cholecalciferol (Vitamin D (25mcg)) 5,000 unit PO DAILY [facility] Last Admin: 07/21/19 08:08 Dose: 5,000 unit Documented by: Doxycycline Monohydrate (Doxycycline) 100 mg PO BID [facility] Last Admin: 07/21/19 08:10 Dose: 100 mg Documented by: Enteral Nutritional Formula (Ensure Surgery) 237 ml PO TIDCM [facility] Last Admin: 07/21/19 08:10 Dose: 237 ml Documented by: Famotidine (Pepcid) 20 mg PO DAILY [facility] Last Admin: 07/21/19 08:08 Dose: 20 mg Documented by: Fluticasone Propionate (Flonase Nasal Collins) 2 spray NASAL DAILY [facility] Last Admin: 07/21/19 08:09 Dose: 2 spray Documented by: Insulin Human Lispro (Humalog Teepen ([facility])) 1 - 6 unit SC Q4H PRN PRN; Protocol PRN Reason: BG>/= 180, SEE PROTOCOL Ketorolac Tromethamine (Toradol (Bkc)) 15 mg IV Q6H PRN PRN PRN Reason: Pain Score 1-5/10 Stop: 07/21/19 19:01 Loratadine (Claritin) 10 mg PO DAILY [facility] Last Admin: 07/21/19 08:08 Dose: 10 mg Documented by: Losartan Potassium (Cozaar) 100 mg PO DAILY [facility] Last Admin: 07/21/19 08:09 Dose: 100 mg Documented by: Meloxicam (Mobic) 7.5 mg [facility] Morphine Sulfate () 2 - 4 mg IV Q2H PRN PRN PRN Reason: Pain Score 4-10/10 Morphine Sulfate () 2 - 4 mg IV Q2H PRN PRN PRN Reason: Pain Score 4-10/10 Ondansetron HCl (Zofran) 4 mg IV Q8H PRN PRN PRN Reason: NAUSEA Oxycodone HCl (Oxyir) 5 - 10 mg PO Q4H PRN PRN PRN Reason: Pain Score 4-10/10 Promethazine HCl (Phenergan) 12.5 mg IM Q6H PRN PRN; Protocol PRN Reason: NAUSEA/VOMITING Senna/Docusate Sodium (Senokot-S, Shanell-Colace) 2 tablet PO BID [facility] Last Admin: 07/21/19 08:08 Dose: 2 tablet Documented by: Sodium Chloride () 10 - 40 ml IV UD PRN PRN Reason: SALINE FLUSH Medical Necessity - Tobacco Use Smoking Status: Current every day smoker Tobacco Use: Cigarettes Assessment/Plan 1. S/P revision left total hip arthroplasty POD #1 2. Continue Pain Medications: Tylenol and oxycodone. Currently only requiring Tylenol for pain control 3. DVT Prophylaxis: Aspirin 81 mg twice daily for 4 weeks postoperatively 4. PT/OT: Weightbearing as tolerated with posterior hip dislocation precautions 5. H & H: 11.8/36.7, asymptomatic. Secondary to acute blood loss from surgery 6. Reactive leukocytosis: Currently 22.8, afebrile. Patient did receive Decadron intraoperatively. No history of diabetes. Patient's previous white blood cell counts were slightly elevated 7. Continue antibiotics while following cultures: Currently pending. Patient will be on doxycycline 1 week postoperatively. 8. Encouraged Incentive Spirometry 9. Disposition: Plan will be for possible discharge home this afternoon if patient tolerates physical therapy and pain is well controlled. Prescriptions will be E scribed to [facility] in [facility]. Patient has outpatient physical therapy established. He will follow-up per postop instructions. Patient will be given prescription for the oxycodone to be printed and only get filled if needed. Patient was also given an order to have his CBC rechecked in 1 to 2 days to make sure white blood cell count is trending down. I have reviewed the [place] Automated Rx Reporting System (OARRS) report for this patient for refill pattern and other prescriber involvement as part of the appropriate surveillance for the provision of acute and chronic controlled medications. The report was requested and reviewed on the date of this entry and was considered in the prescribing process.
--- NOTE | 2019-07-21 08:59 | PCM.DC.THR ---
Discharge Diet: No Restrictions Discharge Activity: May Not Drive - while taking narcotic pain medications. May shower in (days): 1 - Dressing must be intact to skin. Turn dressing away from water Ice area for (Minutes): 20 - Every 1-2 hours while awake Weight Bearing Status: Weight bearing as tolerated Elevate: Operative Extremity - With walker Additional Activity Instructions:: Wear elastic stockings for 2 weeks. DO NOT use alcohol with narcotic pain medication. DO NOT make important decisions while taking narcotic medication. If you have problems with taking your medication (rash, itching, nausea, etc.) call the office at once. Call your doctor if your incision/area has: Increased Pain/ Swelling, Increased Redness, Foul Smelling Discharge Call your doctor if you observe: Fever of 101 or Higher Remove Dressing in (days):: 4 - Okay to remove dressing on July 25, 2019 Additional Instructions: Follow orthopedic postop instructions Posterior hip dislocation precautions: No flexion greater than 90 degrees and no internal or external rotation or crossing of the legs or 3 months postoperatively. Allergies/Adverse Reactions: Allergies Sulfa (Sulfonamide Antibiotics) Allergy (Verified 07/20/19 08:49) Other CHILD, UNKNOWN Medications to take at Discharge Atorvastatin Calcium [Lipitor] 40 mg PO QHS 05/02/14 Carvedilol [Coreg (Beta Jossy)] 12.5 mg PO BID 05/02/14 Fexofenadine HCl [Candice Allergy] 180 mg PO DAILY 04/14/17 Triamcinolone Acetonide [Nasacort] 1 spray NS DAILY 04/14/17 Cholecalciferol (Vitamin D3) [Vitamin D3] 125 mcg PO DAILY 07/13/19 Losartan Potassium [Cozaar] 100 mg PO DAILY 07/13/19 Acetaminophen [Tylenol] 1,000 mg PO Q8 #100 tab 07/21/19 Aspirin [Aspirin, Baby] 81 mg PO BIDCM #60 tab 07/21/19 Doxycycline 100 mg PO BID #12 cap 07/21/19 Famotidine [Pepcid] 20 mg PO DAILY #30 tab 07/21/19 Meloxicam [Mobic] 7.5 mg PO BIDCM #60 tab 07/21/19 Oxycodone [Oxyir] 5 - 10 mg PO Q4H PRN PRN 4 Days #48 tab 07/21/19 Senna/Docusate Sodium [Senokot-S] 2 tab PO BID #10 tab 07/21/19 The following prescriptions were given: Aspirin [Aspirin, Baby] 81 mg PO BIDCM #60 tab Transmission Status: Pending to [id number] Doxycycline 100 mg PO BID #12 cap Transmission Status: Pending to [id number] Meloxicam [Mobic] 7.5 mg PO BIDCM #60 tab Transmission Status: Pending to [id number] Oxycodone [Oxyir] 5 - 10 mg PO Q4H PRN PRN 4 Days #48 tab PRN Reason: Pain Score 4-11/18 Prescription Printed Famotidine [Pepcid] 20 mg PO DAILY #30 tab Transmission Status: Pending to [id number] Senna/Docusate Sodium [Senokot-S] 2 tab PO BID #10 tab Transmission Status: Pending to [id number] Acetaminophen [Tylenol] 1,000 mg PO Q8 #100 tab Transmission Status: Pending to [id number] Orders to be completed after discharge: CBC-Complete Blood Cnt No Diff Time Frame: 2 Days, Facility: [facility], Location: Laboratory Primary Care Physician: Arline Medina DO [Primary Care Provider] - Test Results: Test results from this visit will be discussed in further detail at your follow-up appointment, if applicable. Please Follow Up With: Must get lab work 1 to 2 days postoperatively Please Follow Up With: [facility] When: 07/25/19 @ 10:30 am Please Follow Up With: Demetria Moore When: 08/03/19 @ 10:15 am
--- NOTE | 2019-07-21 10:10 | CASEMGMT ---
RN CM Assessment Note Intro role of CM to patient in room. Pt is awake, alert and able to participate in assessment. Plan is to discharge home today. Presentation: pain in L hip. Had THR 212. MRI consistent with pseudotumor. Diagnosis: Left hip revision PCP: Dr. Arline Medina Specialists: Dr. Reeder Insurance: PAYMILL [facility]erred [facility]acy[facility] Prescription Benefit: yes LNOK: Mother wendy Ribeiro Living Arrangements: Lives independently with in one stry home with 2 steps to enter. States she is able to assist with any care needs. No new needs identified. Pt has equipment @ home and is able t provide transportation. DME: wheeled walker, cane, crutches, raised toilet seat, shower chair, grab bars. HHC: no SNF: no Patient DC Goals: Home DC Plan: Home with outpt therapy arranged for 07/25/2019 @ [facility]. No new needs identified. Radha JEROME RN ACM
[2019-07-21 13:30] VITALS: BP 143/68; PULSE 53; RESP 18; TEMP 36.6; O2SAT 97
--- NOTE | 2019-07-21 13:33 | CASEMGMT ---
Social Work Note SW received message from [facility] ([phone]) requesting update on pt's discharge plan for pt. Pt has both home therapy and outpatient therapy benefits through [facility]. LAURA placed a call to [facility] and left message that pt has discharge in for today and pt has outpatient therapy scheduled. Laya Watkins SHOEMAKING CUTTER, AUTHORIZATION NURSE
== END 2019-07-21 14:06 | disposition home or self-care (01) | DRG 468 ==
LOC: ACINP 08:23 → MS3 13:23
PROVIDERS: Anesthesiology; Admitting Provider Specialist; Referring Provider Specialist; Visit Provider Specialist
PROC: 0SUE09Z Supplement Left Hip Joint, Acetabular Surface with Liner, Open Approach (ICD-10-PCS; CPT 27134; principal; 2019-07-20 10:05)
DX: T84.091A Other mechanical complication of internal left hip prosthesis, initial encounter (principal); T84.84XA Pain due to internal orthopedic prosthetic devices, implants and grafts, initial encounter; Z96.642 Presence of left artificial hip joint; Y79.2 Prosthetic and other implants, materials and accessory orthopedic devices associated with adverse incidents; Y92.9 Unspecified place or not applicable; M19.90 Unspecified osteoarthritis, unspecified site; I10 Essential (primary) hypertension; E78.00 Pure hypercholesterolemia, unspecified; F17.210 Nicotine dependence, cigarettes, uncomplicated; Z79.82 Long term (current) use of aspirin; Z79.899 Other long term (current) drug therapy; Z90.5 Acquired absence of kidney
CPT/HCPCS: 36415; 73502; 80048; 80053; 82962; 85025; 85027; 86850; 86900; 86901; 87015; 87070; 87075; 87081; 87102; 87116; 87176; 87205; 87206; 87635; 88304; 88305; 88311; 93005; 97110; 97116; 97162; 97166; 99251; 99406; C1776; G2023; J7120; G0463; U0003

== ENCOUNTER → 2019-07-25 11:44 | Outpatient (CLI) | payer MEDICARE, SELFPAY ==
[2019-07-20 15:36] VITALS: BMI 32.5
[2019-07-25 12:11] LABS: Hematocrit 37.5 % (40-54); Hemoglobin 11.6 g/dL (13.0-16.5); Mean Corp Hgb Conc 30.9 g/dL (32-36); Mean Corpuscular Hgb 27.9 pg (27.0-32.0); Mean Corpuscular Volume 90.1 fL (80-94); Mean Platelet Vol. 9.2 fl (6.2-12.0); Platelet Count 709 K/mm3 (150-450); RBC Distribution Width SD 53.1 fl (35.1-43.9); Red Blood Count 4.16 M/mm3 (4.6-6.2); White Blood Count 17.3 K/mm3 (4.4-11.0)
== END ==
PROVIDERS: Referring Provider Physician Assistant Surgical; Visit Provider Physician Assistant Surgical
DX: D72.829 Elevated white blood cell count, unspecified (principal)
CPT/HCPCS: 36415; 85027

== ENCOUNTER → 2019-12-15 14:19 | Outpatient (CLI) | payer MEDICARE, SELFPAY ==
[2019-07-20 15:36] VITALS: BMI 32.5
--- NOTE | 2019-12-15 14:23 | CT_ITS ---
STUDY: LOW DOSE CT LUNG CANCER SCREENING REASON FOR EXAM: Male, 64 years old. TOBACCO USE, LUNG SCREENING, CURRENT SMOKER, 1 PPD X 40 YRS, HX-HTN RADIATION DOSAGE (If Supplied By Facility): CTDIvol = ( 4.02 ) mGy, DLP = ( 145.47 ) mGycm TECHNIQUE: No contrast was administered. Low dose technique was utilized (average mAS-38 and kVp 120). 1.25 mm axial source images with a slice interval of 1.25-mm were reconstructed in lung windows. 2.5 mm axial source images with a slice interval of 2.5-mm were reconstructed in lung windows. 5.0 mm axial source images with a slice interval of 5.0-mm were reconstructed in soft tissue windows. Nodule measured using lung windows on PACS and/or independent workstation with automated measurement of minimum and maximum diameter. Nodule measurement reported as average diameter rounded to the nearest whole number. Growth is defined as an increase ins size of greater than 1.5 mm. COMPARISON: None. NODULES: No suspicious nodules seen. Emphysema: Minimal degree of emphysematous changes. Endobronchial lesion: None Aorta: Minimal calcific plaque of the aortic arch. Coronary arteries: Coronary artery calcification. Mediastinal nodes: Small benign appearing mediastinal lymph nodes. Other chest and abdominal findings: CT/Low Dose CT Lung Screening IMPRESSION: Lung-RADS category 2 - Continue annual screening with LDCT in 12 months. IMPORTANT NOTES FOR USE: ACR Lung-RADS Version 1.0 Assessment Categories Release Date: June 06, 2013 Category: Coded 0-4 bases on nodule(s) with highest degree of suspicion. Negative screen is defined as categories 1 and 2; a positive screen is defined as categories 3 and 4. Category 3 and 4A nodules that are unchanged on interval CT should be coded as category 2, and individuals returned to screening in 12 months. Category 4X: Category 3 or 4 nodules with additional imaging findings that increase the suspicion of lung cancer, such as spiculation, GGN that doubles in size in 1 year, enlarged lymph notes, etc. Category Modifiers: S (significant finding unrelated to lung cancer) and C (prior history of treated lung cancer) may be added to the 0-4 Lung-RADS Electronically Signed: Manan Alexis, at 15:04 EST , Service support ,
== END ==
DX: Z12.2 Encounter for screening for malignant neoplasm of respiratory organs (principal); F17.210 Nicotine dependence, cigarettes, uncomplicated
CPT/HCPCS: G0297

== ENCOUNTER → 2020-12-06 13:43 | Outpatient (CLI) | payer MEDICARE, SELFPAY ==
--- NOTE | 2020-12-06 13:51 | CT_ITS ---
STUDY: CT ABDOMEN AND PELVIS WITH AND WITHOUT CONTRAST REASON FOR EXAM: Male, 65 years old. GROSS HEMATURIA. Status post partial right nephrectomy. RADIATION DOSAGE (If Supplied By Facility): CTDIvol = ( 24.56 ) mGy, DLP = ( 3819.04 ) mGycm TECHNIQUE: Transaxial images were obtained from the dome of the diaphragm to the symphysis pubis without oral contrast. IV 100mL Isovue-[id number] was administered. Sagittal and coronal images were reconstructed. Individualized dose optimization techniques were used for this CT. COMPARISON: None. FINDINGS: The visualized lung bases are unremarkable. The visualized portions of the heart are within normal limits. Multiple subcentimeters cysts are seen in the liver. There is a 2.9 cm x 1.8 cm enhancing nodule in the anterior aspect of the right lobe of the liver in the midportion. This may represent a small hepatic hemangioma. Correlation with ultrasound is recommended for further evaluation. I suspect a tiny gallstone in the region of the neck of the gallbladder. Normal spleen. There are pancreatic calcifications in the distribution of the ducts consistent with chronic pancreatitis. Normal bilateral adrenal glands. There is evidence of a surgical defect along the lateral cortical region of the mid and lower pole of the right kidney. Stable right renal cyst. Small left renal cysts. Normal visualized stomach. Normal small intestine. Normal colon. The appendix is visualized and appears normal. There is scattered atherosclerotic calcification of the abdominal aorta, without a demonstrated aneurysm. Normal inferior vena cava. Normal retroperitoneum. Normal urinary bladder. There is a left-sided inguinal hernia containing adipose tissue. There are degenerative changes of the visualized lumbar spine. 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 The patient is status post bilateral hip replacement. CT/CT Abd/Pelvis W/WO Contrast IMPRESSION: Multiple subcentimeters cysts are seen throughout the liver. 2.9 cm x 1.8 cm enhancing nodule in the anterior aspect of the right lobe of liver in its midportion. This most likely represents a small hemangioma. Correlation with ultrasound is recommended for further evaluation. I suspect a tiny gallstone in the neck of the gallbladder. Surgical defect along the lateral cortex of the mid right kidney. Electronically Signed: Manan Alexis MD at 14:42 EDT , Service support ,
[2020-12-06 14:21] LABS: EGFR FINGERSTICK > 60.0000 mL/min (>60)
== END ==
PROVIDERS: Referring Provider Urology; Visit Provider Urology
DX: R31.0 Gross hematuria (principal)
CPT/HCPCS: 74178; Q9967

== ENCOUNTER 2021-01-23 09:17 | Day surgery (SDC) | payer MEDICARE, SELFPAY ==
--- NOTE | 2021-01-21 11:07 | EKG12_ITS ---
Test Reason : PREOP Blood Pressure : / mmHG Vent. Rate : 068 BPM Atrial Rate : 068 BPM P-R Int : 188 ms QRS Dur : 112 ms QT Int : 402 ms P-R-T Axes : 032 014 015 degrees QTc Int : 427 ms Normal sinus rhythm Normal ECG Confirmed by MAKSIM PETERSON, RITU ([id number]), news assignment editor JÚNIOR WHITLOCK ([id number]) on 01/22/2021 7:27:23 AM Referred By: Jamar Cody Confirmed By:RITU SCHAEFFER MD
[2021-01-21 11:53] LABS: Hematocrit 47.2 % (40-54); Hemoglobin 15.5 g/dL (13.0-16.5); Mean Corp Hgb Conc 32.8 g/dL (32-36); Mean Corpuscular Hgb 27.6 pg (27.0-32.0); Mean Corpuscular Volume 84.1 fL (80-94); Mean Platelet Vol. 9.1 fl (6.2-12.0); Platelet Count 602 K/mm3 (150-450); RBC Distribution Width CV 16.6 % (11.6-14.6); RBC Distribution Width SD 50.4 fl (35.1-43.9); Red Blood Count 5.61 M/mm3 (4.6-6.2); White Blood Count 12.2 K/mm3 (4.4-11.0)
[2021-01-23 09:52] VITALS: BP 129/60; PULSE 69; RESP 18; TEMP 36.6; O2SAT 96; BMI 33.7
[2021-01-23] MEDS: Lactated Ringers 1,000 ML 15 ML IV (09:59)
--- NOTE | 2021-01-23 11:30 | BLB_PTH ---
PATIENT: KEYSHA BENNETT [place] [facility] [place][id number] AGE/SX: 66/M ROOM: RE01/23/[address]: Dr. Jamar Cody MD : 1955 BED: DIS: 01/23/2021 SPEC #: [id number] RECD: 01/23/21 13:23 STATUS: MOUSTAPHA REKatie #: [id number] NEEMA: 01/23/21 11:[address]: Jamar Cody DEPT: SURGICAL PATHOLOGY RECD BY: Sumeet Casper ENTERED: 01/23/21 14:03 SP TYPE: TURB OTHR DR: Dr. Arline Medina, Tissues: Urinary bladder, NOS Procedures: Surgery Specimen Level V HEADER OPERATION: Cysto, transurethral resection bladder tumor PRE-OP DIAGNOSIS: Neoplasm of bladder tumor TISSUE SUBMITTED: Bladder tumor MICROSCOPIC DIAGNOSIS Urinary bladder, transurethral resection: Papillary urothelial carcinoma. See cancer synoptic report below. AM:rossy 01/24/2021 COMMENT BLADDER CANCER (TUR) SUMMARY Procedure: Transurethral resection of bladder (TURBT) Tumor site: Not specified Histologic type: Papillary urothelial carcinoma Histologic grade: 1/3 (WHO low grade) Tumor configuration: Papillary Muscularis propria presence: Not present in biopsy. Lymphvascular invasion: Not identified Tumor extension: Confined to mucosa. Additional pathologic findings: None. The above summary is in compliance with [employer] [place] [employer] (CAP) Cancer Protocols Checklist and [place] Joint Committee on Cancer (AJCC), Staging Manual, 8th Ed. Reference is made to the patient's previous nephrectomy from 2006 ([id number]) in which renal cell carcinoma was identified. MICROSCOPIC DESCRIPTION Slides are reviewed. GROSS DESCRIPTION Received in fixative is one container labeled with the patient's name and designated bladder tumor. The specimen consists of multiple irregular fragments of light charles soft tissue that in aggregate measure 0.6 x 0.5 x <0.1 cm. The specimen is totally submitted in one cassette. / AM:rossy 01/23/21 TC:0 CPT: 92257
--- NOTE | 2021-01-23 12:25 | HP.PCM_ITS ---
HPI - General HPI Narrative KEYSHA BENNETT, is a 66 M who presents for transurethral resection of a medium-sized bladder tumor and instillation of mitomycin-C [facility] Medical History (Updated 01/16/21 @ 13:46 by Sabrina Weber) Arthritis Bladder disease Cardiology follow-up encounter CPAP (continuous positive airway pressure) dependence Gastric reflux High cholesterol History of echocardiogram History of renal disease History of stress test Hypertension Injury of back Prostate disease Shortness of breath on exertion Smoker Wears glasses Home Medications atorvastatin 40 mg PO QHS 05/02/14 [History Last Taken Unknown] carvedilol 12.5 mg PO BID 05/02/14 [History Last Taken 07/20/19 06:30] triamcinolone acetonide [Nasacort] 1 spray NS DAILY 04/14/17 [History Last Taken Unknown] losartan 100 mg PO DAILY 07/13/19 [History Last Taken 07/20/19 06:30] acetaminophen 1,000 mg PO PRN PRN 01/16/21 [History Last Taken Unknown] doxazosin 4 mg PO DAILY 01/16/21 [History Last Taken Unknown] omeprazole 20 mg PO DAILY 01/16/21 [History Last Taken Unknown] cephalexin 500 mg PO BID #10 cap 01/23/21 [Rx Last Taken Unknown] Allergy/AdvReac Type Severity Reaction Status Date / Time Sulfa (Sulfonamide Allergy Other Verified 01/23/21 09:48 Antibiotics) Surgical History (Updated 01/16/21 @ 13:46 by Sabrina Weber) History of myringotomy History of partial nephrectomy Hx of total hip arthroplasty Hx of total hip arthroplasty Hx of umbilical hernia repair Social History Smoking Status: Current every day smoker tobacco type: cigarettes Vital Signs Vital Signs Vital Signs: 01/23/21 09:51 01/23/21 09:52 Temperature 97.9 F Temperature Source Temporal Pulse Rate 69 Respiratory Rate 18 Respiratory Pattern Normal Blood Pressure 129/60 H Blood Pressure Mean 83 Blood Pressure Source Monitor Blood Pressure Position Semi-Fowlers Blood Pressure Location Left Arm Pulse Ox 96 Oxygen Delivery Method Room Air Weight Weight: 119.295 kg Body Mass Index (BMI) 33.7 Results Lab / Micro Data Result Diagrams: 01/21/21 11:20
--- NOTE | 2021-01-23 12:26 | OP.PCM_ITS ---
Report of Operation Date of Procedure: 01/23/21 Pre-Operative Diagnosis: Bladder tumor 2.5 cm in size Post-Operative Diagnosis: Same Surgery/Procedure Performed:: Transurethral resection of a bladder tumor and instillation of mitomycin-C Description of Surgical Findings:: Patient was taken back to the operating room at the smooth induction of general anesthesia he was placed in dorsal lithotomy position the penis and testicles were prepped and draped in usual sterile fashion went of the bladder with a 21 [place] rigid cystourethroscope entire length the urethra was normal the prostate was intact the verumontanum was normal he did have a large obstructive prostate large median lobe high riding bladder neck significant amount of BPH with obstruction then got into the bladder and there was a tumor 2.5 cm size of the lateral wall of the patient's bladder the left side about 2 cm above the left ureteral orifice I then resected the tumor using the resectoscope was put in the resectoscope resect the tumor got a piece of the tumor sent out for tissue and then cauterized the rest of it and cauterized onto the bladder base this was a noninvasive looking tumor. I then put a catheter in the bladder and put 40 cc of mitomycin-C in the bladder 40 mg concentration. Patient will hold this in the postop period for postop instillation. Photographs were taken of the tumor and also photographs taken at risk of the resection site site showing a complete resection. Surgeon: roxane Type of Anesthesia: General Drains: none Admit VTE Documentation VTE Present on Admission: No VTE Mechan Device Prophylaxis: SCD's VTE Pharm Prophylaxis ordered?: No
--- NOTE | 2021-01-23 12:26 | PCM.DC ---
Discharge Instructions Diet Discharge Diet: No restrictions Activity Discharge Activity: Return to Normal Activity and May Not Drive (while taking narcotic pain medications.) Dressing / Incision Call your doctor if you observe: Fever of 101 or Higher Follow Up Care Please Follow Up With: Jamar Cody MD When: Call [phone] for an appointment Test Results: Test results from this visit will be discussed in further detail at your follow-up appointment, if applicable. Discharge Plan Admission Primary Reason for Your Visit: resection of bladder tumor and mitomycin C treatment Attending Provider: Jamar Cody Primary Care Provider: Arline Medina Discharge Orders/Prescriptions Prescriptions: New cephalexin 500 mg capsule 500 mg PO BID Qty: 10 RF: 0 Continued atorvastatin 40 MG tablet 40 mg PO QHS RF: 0 carvedilol 12.5 MG tablet 12.5 mg PO BID RF: 0 triamcinolone acetonide [Nasacort] 1 SPRAY aerosol,spray 1 spray NS DAILY RF: 0 losartan 100 MG tablet 100 mg PO DAILY RF: 0 omeprazole 20 mg Capsule,Delayed Release(Dr/Ec) 20 mg PO DAILY RF: 0 doxazosin 4 mg Tablet 4 mg PO DAILY RF: 0 acetaminophen 500 MG tablet 1,000 mg PO PRN PRN (Reason: Pain) RF: 0 Referrals / Follow Up: Jamar Cody MD [STAFF PHYSICIAN] - Arline Medina DO [Primary Care Provider] - Disposition Disposition (needs filled in before D/C Order can be placed): Home, Self Care
[2021-01-23 12:35] VITALS: BP 129/60; BP 133/73; PULSE 66; RESP 16; TEMP 36.1; O2SAT 92
[2021-01-23 12:45] VITALS: BP 129/60; BP 132/77; PULSE 67; RESP 16; O2SAT 96
[2021-01-23 13:00] VITALS: BP 129/60; BP 138/74; PULSE 70; RESP 16; O2SAT 93
[2021-01-23 13:15] VITALS: BP 129/60; BP 143/75; PULSE 67; RESP 16; TEMP 36.4; O2SAT 96
[2021-01-23 13:59] VITALS: BP 129/60
== END 2021-01-23 14:11 | disposition home or self-care (01) ==
LOC: SDC 09:21 → AC 09:21
PROVIDERS: Anesthesiology; Referring Provider Urology; Visit Provider Urology
PROC: 0T5B8ZZ Destruction of Bladder, Via Natural or Artificial Opening Endoscopic (ICD-10-PCS; CPT 51720; principal; 2021-01-23 11:20)
DX: C67.2 Malignant neoplasm of lateral wall of bladder (principal); N40.1 Benign prostatic hyperplasia with lower urinary tract symptoms; N13.8 Other obstructive and reflux uropathy; I10 Essential (primary) hypertension; E78.00 Pure hypercholesterolemia, unspecified; K21.9 Gastro-esophageal reflux disease without esophagitis; M19.90 Unspecified osteoarthritis, unspecified site; F17.210 Nicotine dependence, cigarettes, uncomplicated; Z79.899 Other long term (current) drug therapy; Z90.5 Acquired absence of kidney; Z96.643 Presence of artificial hip joint, bilateral
CPT/HCPCS: 51720; 52235; 36415; 85027; 88307; 93005; J7120; J3490; J9280

== ENCOUNTER 2021-02-11 16:29 | Outpatient (CLI) | payer MEDICARE, SELFPAY ==
--- NOTE | 2021-02-11 | CYSPIN_PTH ---
PATIENT: KEYSHA [facility]ENNETT [id number] AGE/SX: 66/M ROOM: RE02/11/[address]: Dr. Jamar Cody MD : 1955 BED: DIS: 02/11/2021 SPEC #: [id number] RECD: 02/12/21 09:11 STATUS: MOUSTAPHA REKatie #: [id number] NEEMA: 02/11/21 00:[address]: Jamar Cody DEPT: CYTOLOGY RECD BY: Randy Baltazar ENTERED: 02/12/21 09:11 SP TYPE: CYSPIN FL OTHR DR: Dr. Arline Medina, DO Tissues: Urine Procedures: Pap Stain (control) Special Stain Group II Cytospin Fluid HEADER OPERATION: Not noted PRE-OP DIAGNOSIS: Gross hematuria TISSUE SUBMITTED: Urine for cytology DIAGNOSIS CYTOLOGY Urine for cytology (cytospin): A few atypical urothelial cells noted, suspicious for malignancy in the background of marked acute inflammation. SJ:rossy 02/13/21 COMMENT Clinical correlation and appropriate follow up are necessary. Please make reference to previous specimens ([id number]) urinary bladder, TUR with diagnosis of ?papillary urothelial carcinoma? and ([id number]) kidney, nephrectomy with diagnosis of ?renal cell carcinoma.? Case has been reviewed in consultation with Dr. Meraz who concurs with the above diagnosis. IDC:AM CYTOLOGY STUDY Slides are reviewed. CYTOLOGY GROSS Received is 10 ml of gold cloudy fluid labeled with the patient's name and and designated per the requisition as urine. Submitted for cytology preparation. / rossy 02/12/2021 TC:5 CPT: 74333
[2021-02-11 16:40] LABS: Cytology, Body Fluid / CSF SEE PATHOLOGY REPORT
== END 2021-02-11 23:59 | disposition short-term general hospital (02) ==
LOC: LABSPEC 16:30
PROVIDERS: Referring Provider Urology; Visit Provider Urology
DX: R31.0 Gross hematuria (principal)
CPT/HCPCS: 88108; 88313

== ENCOUNTER 2021-05-23 13:43 | Outpatient (RCR) | payer MEDICARE, SELFPAY ==
[2021-05-23 14:12] LABS: Absolute Lymphocyte Count 3.49 X10^3/uL (0.83-4.51); Absolute Neutrophil Count 6.9 X10^3/uL (2.0-7.7); Basophil# 0.06 X10^3/uL; Basophil% 0.5 % (0-1); Eosinophils% 2.6 % (0-5); Hematocrit 46.9 % (40-54); Hemoglobin 15.4 g/dL (13.0-16.5); Lymphocyte # 3.49 X10^3/ul (0.83-4.51); Lymphocyte % 30.5 % (19-41); Mean Corp Hgb Conc 32.8 g/dL (32-36); Mean Corpuscular Hgb 28.5 pg (27.0-32.0); Mean Corpuscular Volume 86.9 fL (80-94); Mean Platelet Vol. 9.2 fl (6.2-12.0); Monocyte# 0.66 X10^3/uL; Monocyte% 5.8 % (0-10); NRBC Flagged by Analyzer 0 % (0-5); Neutrophil # 6.89 X10^3/uL (2.7-7.7); Neutrophil % 60.2 % (47-70); Platelet Count 531 K/mm3 (150-450); RBC Distribution Width CV 15.8 % (11.6-14.6); RBC Distribution Width SD 49.9 fl (35.1-43.9); White Blood Count 11.5 K/mm3 (4.4-11.0)
[2021-05-23 14:33] LABS: Vitamin B12 457 pg/mL (211-911)
[2021-05-23 14:39] LABS: ALB/GLOB Ratio 0.9 RATIO (0.9-2.4); AST(SGOT) 16 U/L (15-37); Alanine Aminotransfer ALT/SGPT 26 U/L (16-61); Albumin, Serum 3.5 g/dL (3.2-5.0); Alkaline Phosphatase 79 U/L (45-117); Anion Gap 4 (5-15); BUN 18 mg/dL (7-18); BUN/Creat Ratio 19.6 RATIO (10-20); Calcium,Total 9.1 mg/dL (8.5-10.1); Chloride 109 mmol/L (98-107); Creatinine, Serum 0.92 mg/dL (0.70-1.30); EST Glomerular Filtration Rate 87 mL/min (>60); Est Glom Filt Rate - Afr Amer 105 mL/min (>60); Ferritin 54 ng/mL (26-388); Globulin 4.1 g/dL (2.2-4.2); Glucose 104 mg/dL (74-106); Iron 67 ug/dL (65-175); Iron Binding Capacity,Total 348 ug/dL (250-450); LDH 166 U/L (87-241); PERCENT IRON SATURATION 19.3 % (15.0-55.0); Potassium 4.2 mmol/L (3.5-5.1); Protein, Total 7.6 g/dL (6.4-8.2); Sodium Level 140 mmol/L (136-145)
[2021-05-29 10:35] LABS: Erythropoietin 4.7 mIU/mL (2.6-18.5)
== END 2021-06-08 23:59 ==
LOC: PAVLAB 13:43
PROVIDERS: Nurse Practitioner Family; Referring Provider Internal Medicine Medical Oncology; Visit Provider Internal Medicine Medical Oncology
DX: D75.839 Thrombocytosis, unspecified (principal); D72.829 Elevated white blood cell count, unspecified
CPT/HCPCS: 36415; 80053; 82607; 82668; 82728; 82746; 83540; 83550; 83615; 85025

== ENCOUNTER → 2021-08-15 | Outpatient (CLI) | payer MEDICARE, SELFPAY ==
--- NOTE | 2021-08-15 14:45 | CYSPIN_PTH ---
PATIENT: KEYSHA BENNETT [facility] U[facility][id number] AGE/SX: 66/M ROOM: RE08/15/[address]: Dr. Jamar Cody MD : 1955 BED: DIS: 08/15/2021 SPEC #: [id number] RECD: 08/16/21 07:42 STATUS: MOUSTAPHA REKatie #: [id number] NEEMA: 08/15/21 14:[address]: Jamar Cody DEPT: CYTOLOGY RECD BY: Lynn Lyles ENTERED: 08/16/21 07:42 SP TYPE: CYSPIN FL OTHR DR: Dr. Arline Medina, DO Tissues: Urine Procedures: Pap Stain (control) Special Stain Group II Cytospin Fluid HEADER OPERATION: Not noted PRE-OP DIAGNOSIS: Malignant neoplasm of bladder TISSUE SUBMITTED: Urine for cytology DIAGNOSIS CYTOLOGY Urine for cytology (cytospin): Negative for malignant cells (Clari system category 2). Acute inflammation. 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 CYTOLOGY STUDY Slides are reviewed. CYTOLOGY GROSS Received is 30 ml of dark gold cloudy fluid labeled with the patient's name and and designated per the requisition as urine. Submitted for cytology preparation. / rossy 08/15/2021 TC:5 CPT: 73429
[2021-08-15 17:06] LABS: Cytology, Body Fluid / CSF SEE PATHOLOGY REPORT
== END | disposition home or self-care (01) ==
LOC: LABSPEC 16:54
PROVIDERS: Referring Provider Urology; Visit Provider Urology
DX: C67.2 Malignant neoplasm of lateral wall of bladder (principal)
CPT/HCPCS: 88108; 88313

== ENCOUNTER → 2021-11-01 | Outpatient (CLI) | payer MEDICARE, SELFPAY ==
--- NOTE | 2021-10-31 | LES_PTH ---
PATIENT: KEYSHA BENNETT LOC: [facility] U#:[id number] AGE/SX: 66/M ROOM: RE11/01/[address]: Dr. Yaw Orantes MD : 1955 BED: DIS: 11/01/2021 SPEC #: [id number] RECD: 11/01/21 09:48 STATUS: MOUSTAPHA JIMENEZ #: [id number] NEEMA: 10/31/21 00:[address]: Yaw Orantes DEPT: SURGICAL PATHOLOGY RECD BY: Sumeet Casper ENTERED: 11/01/21 10:12 SP TYPE: Lesion OTHR DR: Dr. Arline Medina, DO Tissues: Skin of eyelid, NOS Procedures: Surgery Specimen Level IV HEADER OPERATION: Right upper eyelid lesion excision PRE-OP DIAGNOSIS: Right upper eyelid lesion TISSUE SUBMITTED: Right upper eyelid lesion MICROSCOPIC DIAGNOSIS Lesion of right upper eyelid, biopsy: Polypoid hemangioma. AM:rossy 11/04/2021 MICROSCOPIC DESCRIPTION Slides are reviewed. GROSS DESCRIPTION Received in fixative is one container labeled with the patient's name and designated RUL. The specimen consists of a piece of charles-brown skin measuring 0.4 x 0.4 x 0.2 cm. The entire specimen is submitted in one cassette. / GUMARO:rossy 11/01/2021 TC:5 CPT: 58038
== END | disposition home or self-care (01) ==
LOC: LAB 09:53 → LABSPEC 09:54
PROVIDERS: Referring Provider Ophthalmology; Visit Provider Ophthalmology
DX: D18.09 Hemangioma of other sites (principal)
CPT/HCPCS: 88305

== ENCOUNTER 2023-08-05 18:31 | Observation (INO) | payer MEDICARE, SELFPAY ==
[2023-08-05] VITALS (8 sets, daily range): BP systolic 117–158; BP diastolic 54–66; PULSE 76–99; RESP 20–22; TEMP 36.8–36.9; O2SAT 91–94; BMI 35.2
--- NOTE | 2023-08-05 19:03 | EKG12_ITS ---
Test Reason : DYSRHYTHMIA Blood Pressure : / mmHG Vent. Rate : 094 BPM Atrial Rate : 094 BPM P-R Int : 178 ms QRS Dur : 108 ms QT Int : 362 ms P-R-T Axes : 033 -02 017 degrees QTc Int : 452 ms Sinus rhythm with PAC's Otherwise normal ECG Confirmed by Sal Hughes ([id number]), index editor JÚNIOR WHITLOCK ([id number]) on 08/06/2023 11:14:21 AM Referred By: Confirmed By:aSl Hughes
--- NOTE | 2023-08-05 19:03 | RAD_ITS ---
INDICATION: dyspnea EXAMINATION/TECHNIQUE: X-RAY - XR Chest 1 View COMPARISON: None. FINDINGS: Left basilar patchy opacities. Tortuous and calcified thoracic aorta. The heart is not enlarged. No pleural effusion or pneumothorax. Degenerative changes of the thoracic spine. RAD/Chest 1 View (Portable) IMPRESSION: Left lower lobe pneumonia. Electronically Signed: Danny Titus MD at 20:24 EDT ,
[2023-08-05 19:18] LABS: Absolute Lymphocyte Count 1.79 X10^3/uL (0.83-4.51); Absolute Neutrophil Count 15.6 X10^3/uL (2.0-7.7); Basophil# 0.09 X10^3/uL; Basophil% 0.5 % (0-1); Eosinophil# 0.29 X10^3/uL; Eosinophils% 1.6 % (0-5); Hematocrit 43.3 % (40-54); Hemoglobin 14.1 g/dL (13.0-16.5); Lymphocyte # 1.79 X10^3/ul (0.83-4.51); Lymphocyte % 9.6 % (19-41); Mean Corp Hgb Conc 32.6 g/dL (32-36); Mean Corpuscular Hgb 26.8 pg (27.0-32.0); Mean Corpuscular Volume 82.3 fL (80-94); Mean Platelet Vol. 8.8 fl (6.2-12.0); Monocyte# 0.82 X10^3/uL; Monocyte% 4.4 % (0-10); NRBC Flagged by Analyzer 0 % (0-5); Neutrophil # 15.58 X10^3/uL (2.7-7.7); Neutrophil % 83.3 % (47-70); Platelet Count 740 K/mm3 (150-450); RBC Distribution Width CV 15.8 % (11.6-14.6); RBC Distribution Width SD 47.3 fl (35.1-43.9); Red Blood Count 5.26 M/mm3 (4.6-6.2); White Blood Count 18.7 K/mm3 (4.4-11.0)
[2023-08-05] MEDS: Ipratropium/Albuterol Sulfate 3 ML AMPUL.NEB INHALATION (19:25)
[2023-08-05 19:36] LABS: Anion Gap 7 (5-15); BUN 21 mg/dL (7-18); BUN/Creat Ratio 18.4 RATIO (10-20); Calcium,Total 9.1 mg/dL (8.5-10.1); Chloride 104 mmol/L (98-107); Creatinine, Serum 1.14 mg/dL (0.70-1.30); EST Glomerular Filtration Rate 67 mL/min (>60); Est Glom Filt Rate - Afr Amer 82 mL/min (>60); Estimated Creatinine Clearance 84.46 ml/min; Glucose 109 mg/dL (74-106); Potassium 3.8 mmol/L (3.5-5.1); Sodium Level 135 mmol/L (136-145); Troponin-I HS 17 pg/mL (3.0-78.0)
--- NOTE | 2023-08-05 19:43 | ED.VIS.DYS ---
HPI History of Present Illness Chief Complaint: Cold Sx Informant: patient and spouse/S.O. Narrative Narrative: 68-year-old male presenting to the emergency room with dyspnea and cough. Patient states for a month he has had a right ear infection. This has been an intermittent problem for him. He is tympanostomy tubes in place and he follows with ENT who is prescribed him antibiotics in the past month. He states that last Thursday he developed shortness of breath feeling very warm and a cough that is productive. Thursday was much better Thursday however his dyspnea returned but then by the dyspnea had resolved and was gone again until today. He states today he feels more dyspneic continues to cough feels like he may have a fever. He notes nasal congestion. He states he quit smoking in November of last year. [facility] Medical History Thrombocytosis Leukocytosis Wears glasses Arthritis Prostate disease Bladder disease History of renal disease High cholesterol Injury of back Gastric reflux Smoker CPAP (continuous positive airway pressure) dependence Shortness of breath on exertion History of echocardiogram History of stress test Cardiology follow-up encounter Hypertension Home Medications ?Medication ?Instructions ?Recorded ?Last Taken ?Type atorvastatin 40 mg tablet 40 mg PO QHS 05/02/14 Unknown History carvedilol 12.5 mg tablet 12.5 mg PO BID heart 05/02/14 07/20/19 06:30 History triamcinolone acetonide 55 mcg 1 spray NS DAILY ALLERGIES 04/14/17 Unknown History nasal spray aerosol (Nasacort) losartan 100 mg tablet 100 mg PO DAILY htn 07/13/19 07/20/19 06:30 History acetaminophen 500 mg tablet 1,000 mg PO PRN PRN Pain 01/16/21 Unknown History doxazosin 4 mg tablet 4 mg PO DAILY 01/16/21 Unknown History omeprazole 20 mg capsule,delayed 20 mg PO DAILY 01/16/21 Unknown History release cephalexin 500 mg capsule 500 mg PO BID #10 caps 01/23/21 Unknown Rx dutasteride 0.5 mg capsule 0.5 mg PO DAILY 04/26/21 Unknown History varenicline 0.5 mg tablet 0.5 mg PO DAILY 04/26/21 Unknown History cetirizine 10 mg capsule (Zyrtec) 10 mg PO DAILY PRN 05/02/21 Unknown History Allergy/AdvReac Type Severity Reaction Status Date / Time Sulfa (Sulfonamide Allergy Other Verified 08/05/23 18:33 Antibiotics) Surgical History History of bladder surgery Hx of umbilical hernia repair History of myringotomy Hx of total hip arthroplasty History of partial nephrectomy Hx of total hip arthroplasty Social History Smoking Status: Former smoker ROS ROS ED Constitutional Constitutional ED: Reports fever(s); Denies chills or weight loss Eyes Eyes: Denies change in vision or diplopia ENT ENT ED: Reports rhinorrhea and other Details: Right ear drainage ; Denies ear pain or sore throat Cardiovascular Cardiovascular: Denies chest pain, orthopnea, palpitations or racing heartbeat Respiratory/Chest Respiratory/Chest: Reports cough, dyspnea, dyspnea on exertion and sputum; Denies orthopnea Gastrointestinal Gastrointestinal: Denies abdominal pain, diarrhea, nausea or vomiting Genitourinary Genitourinary ED: Denies dysuria, hematuria or urinary frequency Musculoskeletal Musculoskeletal: Denies arthralgias or myalgias Integumentary Denies abscess or rash Neurologic Neurologic: Denies headache(s) or weakness Psychiatric Psychiatric: Denies anxiety, depression, suicidal ideation or suicidal thoughts Endocrine Endocrinology: Denies polydipsia, polyphagia or polyuria Allergic/Immunologic Allergic/Immunologic ED: Denies mouth swelling, tongue swelling or urticaria EXAM Physical Exam Const Vital Signs: 08/05/23 18:33 08/05/23 19:08 08/05/23 19:25 Temperature 98.5 F Temperature Source Temporal Pulse Rate 94 99 Respiratory Rate 22 H 20 H Respiratory Effort Normal Non-Labored Respiratory Pattern Normal Normal Blood Pressure 158/60 H Blood Pressure Mean 92 Pulse Ox 92 Oxygen Delivery Method Room Air 08/05/23 20:00 08/05/23 20:50 08/05/23 21:39 Temperature 98.2 F 98.5 F 98.3 F Temperature Source Oral Oral Oral Pulse Rate 89 85 76 Respiratory Rate 21 H 21 H 21 H Respiratory Effort Respiratory Pattern Blood Pressure 135/54 H Blood Pressure Mean 81 Pulse Ox 91 93 91 Oxygen Delivery Method Room Air Room Air Room Air Positive well nourished, well developed and obese General Appearance ED: well developed and NAD Nutritional Appearance: obese HEENT Reports normocephalic, head/scalp atraumatic and moist mucous membranes Eyes PERRL and EOMs intact bilaterally Neck no lymphadenopathy, supple and no JVD Resp normal respiratory effort and clear to auscultation bilaterally Resp Narrative: Diminished at bases Cardio regular rate, regular rhythm and no murmurs GI normal to inspection, nondistended, normoactive bowel sounds and non-tender Palpation: soft Back/Spine no CVA tenderness and normal ROM Extremity normal to inspection General Extremety ED: Negative for edema General Extremity: Negative for edema Neuro oriented x3 and CN's II-XII intact bilaterally Sensorium / Orientation: alert Motor Exam: strength 5/5 throughout Psych mental status grossly normal Mood & Affect: Negative for depressed or tearful Skin no rashes or lesions noted and no wounds MDM MDM MDM Narrative Medical decision making narrative: Differential diagnosis includes pneumonia pleural effusion pneumothorax sepsis dehydration empyema viral syndrome My independent interpretation of the chest x-ray is left lower lobe infiltrate radiology concurs. White blood cell count is 18.7 with 83.3 neutrophils. Coags are normal. BMP shows a glucose of 109 BUN 21 with a creatinine of 1.14. Lactic acid is elevated 2.3. Total bilirubin is 1.3 direct 0.3 troponin 17. EKG is a sinus rhythm with a ventricular rate of 94 bpm. PACs noted. Influenza RSV and COVID swabs negative. Blood cultures were obtained he received IV fluids Rocephin and azithromycin. A breathing treatment was also given. With ambulation the patient is about 90% at 1 point he dropped to 89 very briefly the nursing notes that he was dyspneic for the length of the walk. Plan is admission to hospital. History & Record Review Discussion w/independent historian: Patient and Significant other Lab Data Attestation: I reviewed the patient's lab results. Labs: Laboratory Results - last 24 hr 08/05/23 08/05/23 19:11 19:35 WBC 18.7 H RBC 5.26 Hgb 14.1 Hct 43.3 MCV 82.3 MCH 26.8 L MCHC 32.6 RDW Std Deviation 47.3 H RDW Coeff of Monse 15.8 H Plt Count 740 H MPV 8.8 Immature Gran % (Auto) 0.600 Neut % (Auto) 83.3 H Lymph % (Auto) 9.6 L Kidder % (Auto) 4.4 Eos % (Auto) 1.6 Baso % (Auto) 0.5 Absolute Neuts (auto) 15.6 H Absolute Lymphs (auto) 1.79 Nucleated RBC % 0 PT 14.0 INR 1.1 APTT 36.2 Sodium 135 L Potassium 3.8 Chloride 104 Carbon Dioxide 24.0 Anion Gap 7 BUN 21 H Creatinine 1.14 Estim Creat Clear Calc 84.46 Est GFR (MDRD) Af Amer 82 Est GFR (MDRD) Non-Af 67 BUN/Creatinine Ratio 18.4 Glucose 109 H Lactic Acid 2.3 H* Calcium 9.1 Total Bilirubin 1.30 H Direct Bilirubin 0.30 AST 15 ALT 26 Alkaline Phosphatase 70 Troponin I High Sens 17 Total Protein 7.4 Albumin 3.4 Globulin 4.0 Radiography Diagnostic Testing: Clinical Impression(s) from Imaging Studies Chest X-Ray 08/05/23 19:03 IMPRESSION: Left lower lobe pneumonia. Electronically Signed: Danny Titus MD at 20:24 EDT , Management Discussion w/another healthcare provider: Hospitalist (Dr. Mai) Discharge Plan Dx/Rx/DC Orders Clinical Impression: Pneumonia, Acute dyspnea, Elevated lactic acid level Disposition Disposition: Acute Care [facility]
[2023-08-05] MEDS: Ceftriaxone 1 GM/50 ML BAG IV (19:58)
[2023-08-05 20:11] LABS: International Normalized Ratio 1.1
[2023-08-05 20:12] LABS: Partial Thromboplast Time 36.2 Seconds (24.1-36.2)
[2023-08-05] MEDS: Azithromycin 500 MG in Dextrose 5%-Water (250mL Bag) 250 ML 250 MG IV (20:33)
[2023-08-05 20:51] LABS: AST(SGOT) 15 U/L (15-37); Alanine Aminotransfer ALT/SGPT 26 U/L (16-61); Albumin, Serum 3.4 g/dL (3.2-5.0); Alkaline Phosphatase 70 U/L (45-117); Protein, Total 7.4 g/dL (6.4-8.2)
[2023-08-05 21:14] LABS: Lactic Acid 2.3 mmol/L (0.4-1.9)
[2023-08-05] MEDS: 0.9% Normal Saline (1000mL) 1,000 ML 999 ML IV ×2 (21:37→22:52)
--- NOTE | 2023-08-05 22:04 | PCM.HP.STD ---
HPI - General General Date of Admission: 08/05/23 Date of Service: 08/05/23 Chief Complaint: Dyspnea, cough, subjective fever, rhinorrhea/congestion. HPI Narrative The patient is a 68 y/o M w/ PMHx: Obesity, BAIRON on CPAP, HTN, HLD, GERD, Former tobacco use, BPH, Chronic thrombocytosis, Myeloproliferative disease, CKD stage II, Allergic rhinitis who presents to the [facility] ED on 08/05/23 with history of approximately 1 month previously right ear infection with since then intermittent issues including necessity for tympanostomy tubes following with ENT Dr. Hopkins; however, unfortunately starting last Thursday he had onset of dyspnea as well as a mildly productive cough with some improvement Thursday but then again his dyspnea worsened and returned progressing since then with subjective fever and mild nasal congestion prompting eventual ED evaluation.Workup in the ED included T98.5, heart rate 94, BP 158/60, respiratory rate 22, 92% on room air with most recent repeat vital signs T98.3, heart rate 76, respiratory rate 21, 91% on room air, CBC with WC 18.7, hemoglobin 14.1, platelets 740 with left shift, unremarkable coags, CMP with sodium 135, BUN/creatinine 21/1.14, GFR 67, glucose 109, lactic acid 2.3, hepatic profile with T. bili 1.30 otherwise unremarkable, troponin 17, chest x-ray with evidence of left lower lobe pneumonia, blood culture x 2 pending per ED, rapid SARS COVID/influenza/RSV PCR negative. In the ED patient administered 1 L normal saline, DuoNeb therapy as well as IV azithromycin and IV Rocephin. [facility] Medical History Thrombocytosis Leukocytosis Wears glasses Arthritis Prostate disease Bladder disease History of renal disease High cholesterol Injury of back Gastric reflux Smoker CPAP (continuous positive airway pressure) dependence Shortness of breath on exertion History of echocardiogram History of stress test Cardiology follow-up encounter Hypertension Home Medications ?Medication ?Instructions ?Recorded ?Last Taken ?Type atorvastatin 40 mg tablet 40 mg PO QHS 05/02/14 Unknown History carvedilol 12.5 mg tablet 12.5 mg PO BID heart 05/02/14 07/20/19 06:30 History losartan 100 mg tablet 100 mg PO DAILY htn 07/13/19 07/20/19 06:30 History acetaminophen 500 mg tablet 1,000 mg PO PRN PRN Pain 01/16/21 Unknown History doxazosin 4 mg tablet 4 mg PO DAILY 01/16/21 Unknown History dutasteride 0.5 mg capsule 0.5 mg PO DAILY 04/26/21 Unknown History cetirizine 10 mg capsule (Zyrtec) 10 mg PO DAILY PRN allergy symptoms 05/02/21 Unknown History montelukast 10 mg tablet 10 mg PO DAILY 08/05/23 Unknown History Allergy/AdvReac Type Severity Reaction Status Date / Time Sulfa (Sulfonamide Allergy Other Verified 08/05/23 18:33 Antibiotics) Family History Mother Kidney disease S/P kidney transplant Father Hypertension Surgical History History of bladder surgery Hx of umbilical hernia repair History of myringotomy Hx of total hip arthroplasty History of partial nephrectomy Hx of total hip arthroplasty Social History (Updated 08/05/23 @ 22:[address] Madelyn Mai MD) household members: spouse Smoking Status: Former smoker how long ago did patient quit smoking: Quit 11/2022, smoked 1 ppd since teen until quit. alcohol intake: never substance use type: does not use ROS ROS Narrative Admission Review of Systems: CONSTITUTIONAL: No weight loss, chills, + subjective fever, weakness or fatigue. HEENT: + Recent issues with ear infections status post tympanostomy tubes, currently stable. Eyes: No visual loss, blurred vision, double vision or yellow sclerae. Ears, Nose, Throat: No sneezing, sore throat. + Congestion, rhinorrhea. SKIN: No rash or itching, lesions, wounds. CARDIOVASCULAR: No chest pain, chest pressure or chest discomfort, palpitations, edema, orthopnea, syncopal events. RESPIRATORY: + Dyspnea, mildly productive cough, occasional wheezing. No hemoptysis. GASTROINTESTINAL: No anorexia, nausea, vomiting or diarrhea, abdominal pain, melena, BRBPR. GENITOURINARY: + BPH well treated with, nonsymptomatic. No dysuria, frequency, urgency or retention. NEUROLOGICAL: No headache, dizziness, syncope, paralysis, ataxia, numbness or tingling in the extremities, focal weakness, change in bowel or bladder control, seizure. MUSCULOSKELETAL: + muscle, back pain, joint pain or stiffness. HEMATOLOGIC: No anemia, bleeding or bruising. LYMPHATICS: No enlarged nodes. No history of splenectomy. PSYCHIATRIC: No history of depression or anxiety. ENDOCRINOLOGIC: No reports of sweating, cold or heat intolerance. No polyuria or polydipsia. ALLERGIES: + History of allergic rhinitis. Vital Signs Vital Signs Vital Signs: 08/05/23 18:33 08/05/23 19:08 08/05/23 19:25 Temperature 98.5 F Temperature Source Temporal Pulse Rate 94 99 Respiratory Rate 22 H 20 H Respiratory Effort Normal Non-Labored Respiratory Pattern Normal Normal Blood Pressure 158/60 H Blood Pressure Mean 92 Pulse Ox 92 Oxygen Delivery Method Room Air 08/05/23 20:00 08/05/23 20:50 08/05/23 21:39 Temperature 98.2 F 98.5 F 98.3 F Temperature Source Oral Oral Oral Pulse Rate 89 85 76 Respiratory Rate 21 H 21 H 21 H Respiratory Effort Respiratory Pattern Blood Pressure 135/54 H Blood Pressure Mean 81 Pulse Ox 91 93 91 Oxygen Delivery Method Room Air Room Air Room Air 08/05/23 22:00 Temperature 98.3 F Temperature Source Pulse Rate 78 Respiratory Rate 22 H Respiratory Effort Respiratory Pattern Blood Pressure 117/62 Blood Pressure Mean 80 Pulse Ox 92 Oxygen Delivery Method Weight Weight: 274 lb Body Mass Index (BMI) 35.2 Physical Exam Narrative Physical Examination: General: Awake, alert, oriented x 3 and cooperative, seated upright in the ED bed, fatigued but no acute distress. Skin: Normal color, normal turgor, no icterus, no cyanosis. HEENT: AT/NC, EOMI, PERRLA, MMM, no carotid bruits or JVD noted; however, thickened neck makes evaluation difficult. Lungs: Diminished, greater bases, left greater than right, appropriate effort, no evidence of any distress, no rales, ronchi or wheezing. Heart: Regular rate and rhythm; no gallop, rub audible. Abdomen: Soft, obese, NTTP, distant normal BS, difficult to appreciate distention and HSM given habitus. Extremities: No cyanosis, clubbing, or edema. Neurological: Patient awake, alert, oriented as noted, cognitive function intact; pupils equally reactive to light and accommodation, cranial nerves grossly normal, moving all 4 extremities, no focal deficits, strength mildly globally Nichole secondary to acute presentation. Psychiatric: Affect appears fatigued otherwise normal, no acute evidence of depressive or anxiety feelings. Results Lab / Micro Data 08/05/23 19:11 08/05/23 19:11 Labs: Laboratory Results - last 24 hr 08/05/23 19:11: WBC 18.7 H, RBC 5.26, Hgb 14.1, Hct 43.3, MCV 82.3, MCH 26.8 L, MCHC 32.6, RDW Std Deviation 47.3 H, RDW Coeff of Monse 15.8 H, Plt Count 740 H, MPV 8.8, Immature Gran % (Auto) 0.600, Neut % (Auto) 83.3 H, Lymph % (Auto) 9.6 L, Bleckley % (Auto) 4.4, Eos % (Auto) 1.6, Baso % (Auto) 0.5, Absolute Neuts (auto) 15.6 H, Absolute Lymphs (auto) 1.79, Nucleated RBC % 0, Sodium 135 L, Potassium 3.8, Chloride 104, Carbon Dioxide 24.0, Anion Gap 7, BUN 21 H, Creatinine 1.14, Estim Creat Clear Calc 84.46, Est GFR (MDRD) Af Amer 82, Est GFR (MDRD) Non-Af 67, BUN/Creatinine Ratio 18.4, Glucose 109 H, Calcium 9.1, Troponin I High Sens 17 08/05/23 19:35: PT 14.0, INR 1.1, APTT 36.2, Lactic Acid 2.3 H*, Total Bilirubin 1.30 H, Direct Bilirubin 0.30, AST 15, ALT 26, Alkaline Phosphatase 70, Total Protein 7.4, Albumin 3.4, Globulin 4.0 Micro: Microbiology 08/05/23 19:11 Mucosa - Nose SARS-CoV-2, Influenza & RSV (PCR) - Final Imaging Radiology Impression Chest X-Ray 08/05/23 19:03 IMPRESSION: Left lower lobe pneumonia. Electronically Signed: Danny Titus MD at 20:24 EDT , Assessment & Plan Assessment/Plan (1) Pneumonia: PLAN: Plan The patient is a 68 y/o M w/ PMHx: Obesity, BAIRON on CPAP, HTN, HLD, GERD, Former tobacco use, BPH, Chronic thrombocytosis, Myeloproliferative disease, CKD stage II, Allergic rhinitis who presents to the [facility] ED on 08/05/23 with history of approximately 1 month previously right ear infection with since then intermittent issues including necessity for tympanostomy tubes following with ENT however unfortunately starting last Thursday he had onset of dyspnea as well as a mildly productive cough with some improvement Thursday but then again his dyspnea worsened and returned progressing since then with subjective fever and mild nasal congestion prompting eventual ED evaluation. #1. Acute Mild Hypoxia secondary to LLL Pneumonia with notable leukocytosis, lactic acidosis (infectious and potentially hypoxia medicated): Will admit to [facility], maintain on oxygen with wean as tolerated to room air if needed although currently maintained on room air but 91-92% and at rest, continue ATC budesonide therapy, PRN albuterol, maintained on IV Rocephin and Azithromycin, HOB, IS parameters w/ pending sputum cultures, full respiratory viral panel and urine antigens. Bld cx x 2 obtained in the ED. #2. Chronic Kidney Disease Stage II per GFR previous trending: Admission BUN/Cr 21/1.14, GFR 67, baseline renal function 0.8-1.1, baseline GFR previously primarily 60-89 range per review, repeat BMP in AM. #3. Hypertension: Continue home regimen including Coreg, losartan, PRN hydralazine. #3. Hyperlipidemia: We will continue patient on statin therapy. #4. Myeloproliferative disease with chronic thrombocytosis: Admission CBC with WBC 18.7, hemoglobin 14.1, platelets 740 with left shift, encourage continued outpatient follow-up with hematology/oncology, continue to trend CBC. #5. Former Tobacco Abuse: Encourage continued tobacco cessation, noted to have quit in November 2022. #6. Obesity: Weight loss and lifestyle changes encouraged. #7. BPH: We will continue patient home dutasteride, doxazosin home regimen. #8. Allergic rhinitis: We will continue patient home cetirizine and montelukast regimen. #9. GERD: Will continue patient on PPI #10. BAIRON: CPAP nightly. #11. DVT prophylaxis: Lovenox. #12. CODE status: Patient HCPOA is his who is present and living will is currently in place. Discussed CODE status at length including difference between FULL code, DNR-CCA and DNR-CC status. Following discussions about the differences in these status, requested Full Code status. Charges/Coding Visit Charges Inpatient E&M: 17429 Init Hosp L2
[2023-08-05] MEDS: 0.9% Normal Saline (1000mL) 1,000 ML 100 ML IV (23:46)
--- NOTE | 2023-08-05 23:50 | CPS ---
patient wears CPAP at home but does not want to wear our unit at this time
[2023-08-05 23:55] LABS: Reflex Lactate? Y
[2023-08-06 02:12] LABS: Lactic Acid 1.7 mmol/L (0.4-1.9)
[2023-08-06 03:57] VITALS: BMI 35.4
[2023-08-06 05:17] LABS: Absolute Lymphocyte Count 2.84 X10^3/uL (0.83-4.51); Absolute Neutrophil Count 19.9 X10^3/uL (2.0-7.7); Basophil# 0.09 X10^3/uL; Basophil% 0.4 % (0-1); Eosinophil# 0.17 X10^3/uL; Eosinophils% 0.7 % (0-5); Hemoglobin 12.7 g/dL (13.0-16.5); Lymphocyte # 2.84 X10^3/ul (0.83-4.51); Lymphocyte % 11.5 % (19-41); Mean Corp Hgb Conc 31.8 g/dL (32-36); Mean Corpuscular Hgb 26.6 pg (27.0-32.0); Mean Corpuscular Volume 83.9 fL (80-94); Mean Platelet Vol. 9.2 fl (6.2-12.0); Monocyte# 1.28 X10^3/uL; Monocyte% 5.2 % (0-10); NRBC Flagged by Analyzer 0 % (0-5); Neutrophil # 19.94 X10^3/uL (2.7-7.7); Neutrophil % 81.1 % (47-70); Platelet Count 643 K/mm3 (150-450); RBC Distribution Width CV 15.9 % (11.6-14.6); RBC Distribution Width SD 48.9 fl (35.1-43.9); Red Blood Count 4.77 M/mm3 (4.6-6.2); White Blood Count 24.6 K/mm3 (4.4-11.0)
[2023-08-06 05:25] VITALS: BP 116/74; PULSE 67; RESP 20; TEMP 36.3; O2SAT 96
[2023-08-06 05:49] LABS: ALB/GLOB Ratio 0.8 RATIO (0.9-2.4); AST(SGOT) 19 U/L (15-37); Alanine Aminotransfer ALT/SGPT 19 U/L (16-61); Albumin, Serum 2.8 g/dL (3.2-5.0); Alkaline Phosphatase 57 U/L (45-117); Anion Gap 4 (5-15); BUN 17 mg/dL (7-18); BUN/Creat Ratio 17.6 RATIO (10-20); Calcium,Total 8.4 mg/dL (8.5-10.1); Chloride 109 mmol/L (98-107); Creatinine, Serum 0.97 mg/dL (0.70-1.30); EST Glomerular Filtration Rate 82 mL/min (>60); Est Glom Filt Rate - Afr Amer 99 mL/min (>60); Estimated Creatinine Clearance 99.55 ml/min; Globulin 3.4 g/dL (2.2-4.2); Glucose 127 mg/dL (74-106); Potassium 3.9 mmol/L (3.5-5.1); Protein, Total 6.2 g/dL (6.4-8.2); Sodium Level 138 mmol/L (136-145)
[2023-08-06 07:09] VITALS: PULSE 68; RESP 18; O2SAT 94
[2023-08-06] MEDS: Budesonide Respules 0.5 MG/2 ML AMPUL.NEB. INHALATION (07:09)
[2023-08-06] MEDS: Enoxaparin 40 MG/0.4 ML Syringe SC (07:37)
[2023-08-06] MEDS: Montelukast 10 MG Tablet PO (07:38)
[2023-08-06] MEDS: Doxazosin 4 MG Tablet PO (07:39)
[2023-08-06] MEDS: Finasteride 5 MG Tablet PO (07:39)
[2023-08-06] MEDS: Losartan Potassium 100 MG Tablet PO (07:39)
[2023-08-06] MEDS: Carvedilol 12.5 MG Tablet PO (07:39)
--- NOTE | 2023-08-06 08:03 | PN.HOSP_ITS ---
Reason for Visit Reason for Visit: Diagnoses Pneumonia, unspecified organism (08/05/23) Subjective Subjective Feeling well. Taken off oxygen. Has been up ambulating without difficulty. Still coughing but nonproductive. Objective Data Objective Data Vital Signs: Vital Signs Temp Pulse Resp BP Pulse Ox O2 Del Method 36.3 C L 68 18 116/74 94 Room Air 08/06/23 05:25 08/06/23 07:09 08/06/23 07:09 08/06/23 05:25 08/06/23 07:09 08/06/23 07:09 Oxygen Delivery Method Room Air Weight: 125 kg Body Mass Index (BMI) 35.4 Intake & Output: Intake and Output for Last 24 Hours 08/04/23 08/05/23 08/06/23 23:59 23:59 23:59 Intake Total 2305 / 2305 Balance 2305 / 2305 Lab / Micro Data 08/06/23 04:49 08/06/23 04:49 Labs: Laboratory Results - last 24 hr 08/05/23 19:11: WBC 18.7 H, RBC 5.26, Hgb 14.1, Hct 43.3, MCV 82.3, MCH 26.8 L, MCHC 32.6, RDW Std Deviation 47.3 H, RDW Coeff of Monse 15.8 H, Plt Count 740 H, MPV 8.8, Immature Gran % (Auto) 0.600, Neut % (Auto) 83.3 H, Lymph % (Auto) 9.6 L, Mcdonald % (Auto) 4.4, Eos % (Auto) 1.6, Baso % (Auto) 0.5, Absolute Neuts (auto) 15.6 H, Absolute Lymphs (auto) 1.79, Nucleated RBC % 0, Sodium 135 L, Potassium 3.8, Chloride 104, Carbon Dioxide 24.0, Anion Gap 7, BUN 21 H, Creatinine 1.14, Estim Creat Clear Calc 84.46, Est GFR (MDRD) Af Amer 82, Est GFR (MDRD) Non-Af 67, BUN/Creatinine Ratio 18.4, Glucose 109 H, Calcium 9.1, Troponin I High Sens 17 08/05/23 19:35: PT 14.0, INR 1.1, APTT 36.2, Lactic Acid 2.3 H*, Total Bilirubin 1.30 H, Direct Bilirubin 0.30, AST 15, ALT 26, Alkaline Phosphatase 70, Total Protein 7.4, Albumin 3.4, Globulin 4.0 08/06/23 01:30: Lactic Acid 1.7 08/06/23 04:49: WBC 24.6 H, RBC 4.77, Hgb 12.7 L, Hct 40.0, MCV 83.9, MCH 26.6 L , MCHC 31.8 L, RDW Std Deviation 48.9 H, RDW Coeff of Monse 15.9 H, Plt Count 643 H, MPV 9.2, Immature Gran % (Auto) 1.100 H, Neut % (Auto) 81.1 H, Lymph % (Auto) 11.5 L, Mcdonald % (Auto) 5.2, Eos % (Auto) 0.7, Baso % (Auto) 0.4, Absolute Neuts (auto) 19.9 H, Absolute Lymphs (auto) 2.84, Nucleated RBC % 0, Sodium 138, Potassium 3.9, Chloride 109 H, Carbon Dioxide 25.0, Anion Gap 4 L, BUN 17, Creatinine 0.97, Estim Creat Clear Calc 99.55, Est GFR (MDRD) Af Amer 99, Est GFR (MDRD) Non-Af 82, BUN/Creatinine Ratio 17.6, Glucose 127 H, Calcium 8.4 L, T otal Bilirubin 1.60 H, AST 19, ALT 19, Alkaline Phosphatase 57, Total Protein 6.2 L, Albumin 2.8 L, Globulin 3.4, Albumin/Globulin Ratio 0.8 L Micro: Microbiology 08/05/23 23:43 Mucosa - Nasopharyngeal Respiratory Panel (PCR) - Final 08/05/23 23:20 Urine, Clean Catch Legionella Antigen - Final 08/05/23 23:20 Urine, Clean Catch Streptococcus pneumoniae Antigen (M - Final 08/05/23 19:11 Mucosa - Nose SARS-CoV-2, Influenza & RSV (PCR) - Final Radiography Diagnostic Testing: Radiology Impression Chest X-Ray 08/05/23 19:03 IMPRESSION: Left lower lobe pneumonia. Electronically Signed: Danny Titus MD at 20:24 EDT , Physical Exam Const alert HEENT head/scalp atraumatic Resp normal respiratory effort Resp Narrative: Left lower lobe crackles Cardio regular rate, regular rhythm, S1 normal heart sound and S2 normal heart sound GI normal to inspection, nondistended, normoactive bowel sounds, soft to palpation, non-tender and non-distended Extremity normal to inspection Neuro Sensorium / Orientation: awake and alert Assessment & Plan Assessment/Plan (1) Pneumonia: PLAN: Plan Suspected pneumococcal pneumonia * Legionella and strep negative. Respiratory panel negative. * SCx pending. * Abx with CTX and azithromycin while in the hospital. Will discharge with 6 more days of Augmentin. Chronic conditions: * Chronic Kidney Disease Stage II per GFR previous trending: * Hypertension: Continue home regimen including Coreg, losartan, PRN hydralazine. * Hyperlipidemia: We will continue patient on statin therapy. * Myeloproliferative disease with chronic thrombocytosis: Admission CBC with WBC 18.7, hemoglobin 14.1, platelets 740 with left shift, encourage continued outpatient follow-up with hematology/oncology, continue to trend CBC. * Former Tobacco Abuse: Encourage continued tobacco cessation, noted to have quit in November 2022. * Obesity Class II: complicates care and recovery * BPH: We will continue patient home dutasteride, doxazosin home regimen. * Allergic rhinitis: We will continue patient home cetirizine and montelukast regimen. * GERD: Will continue patient on PPI * BAIRON: CPAP nightly. DVT prophylaxis: enoxparin Code: Full.
[2023-08-06 10:00] VITALS: BP 147/49; PULSE 66; RESP 20; TEMP 36.4; O2SAT 94
[2023-08-06 14:02] VITALS: BP 123/60; PULSE 62; RESP 16; TEMP 36.4; O2SAT 96
[2023-08-06 16:05] VITALS: O2SAT 94; O2SAT 95
--- NOTE | 2023-08-06 16:05 | CASEMGMT ---
Met with patient to complete XIE form. XIE form explained to patient who voiced understanding and signed form. Original form placed in pt?s chart and copy provided to patient. Francine Jean, Discharge Planning Asst
--- NOTE | 2023-08-06 16:07 | DS.PCM_ITS ---
Providers Date of Admission: 08/05/23 Primary Care Physician: Dr. Arline Medina DO Reason For Visit: PNA, MILD HYPOXIA Diagnosis Discharge Diagnosis (1) Pneumonia: Status: Acute Code(s): J18.9 - Pneumonia, unspecified organism Plan Suspected pneumococcal pneumonia * Legionella and strep negative. Respiratory panel negative. * SCx pending. * Abx with CTX and azithromycin while in the hospital. Will discharge with 6 more days of Augmentin. Chronic conditions: * Chronic Kidney Disease Stage II per GFR previous trending: * Hypertension: Continue home regimen including Coreg, losartan, PRN hydralazine. * Hyperlipidemia: We will continue patient on statin therapy. * Myeloproliferative disease with chronic thrombocytosis: Admission CBC with WBC 18.7, hemoglobin 14.1, platelets 740 with left shift, encourage continued outpatient follow-up with hematology/oncology, continue to trend CBC. * Former Tobacco Abuse: Encourage continued tobacco cessation, noted to have quit in November 2022. * Obesity Class II: complicates care and recovery * BPH: We will continue patient home dutasteride, doxazosin home regimen. * Allergic rhinitis: We will continue patient home cetirizine and montelukast regimen. * GERD: Will continue patient on PPI * BAIRON: CPAP nightly. DVT prophylaxis: enoxparin Code: Full. Medications at Discharge Home Medications atorvastatin 40 mg tablet 40 mg PO QHS 05/02/14 carvedilol 12.5 mg tablet 12.5 mg PO BID heart 05/02/14 losartan 100 mg tablet 100 mg PO DAILY htn 07/13/19 acetaminophen 500 mg tablet 1,000 mg PO PRN PRN Pain 01/16/21 doxazosin 4 mg tablet 4 mg PO DAILY 01/16/21 dutasteride 0.5 mg capsule 0.5 mg PO DAILY 04/26/21 cetirizine 10 mg capsule (Zyrtec) 10 mg PO DAILY PRN allergy symptoms 05/02/21 montelukast 10 mg tablet 10 mg PO DAILY 08/05/23 amoxicillin 875 mg-potassium clavulanate 125 mg tablet 1 tab PO Q12H #12 tabs 08/06/23 guaifenesin 600 mg tablet, extended release 12 hr (Mucinex) 600 mg PO BID #10 tabs 08/06/23 Hospital Course Operations None Procedures None Summary of Care Provided Minutes Spent on Discharge: 32 Hospital Course: Patient presents with dyspnea cough and subjective fever. Patient was found to have a left lower lobe pneumonia. Patient started on antibiotics with ceftriaxone azithromycin. Patient improved and is feeling better. Patient will be discharged with a 6-day course of Augmentin. Weight / BMI Weight Weight: 125 kg Body Mass Index (BMI) 35.4 ABG / Lab / Microbiology Data 08/06/23 04:49 08/06/23 04:49 Laboratory: Laboratory Results - last 24 hr 08/05/23 19:11: WBC 18.7 H, RBC 5.26, Hgb 14.1, Hct 43.3, MCV 82.3, MCH 26.8 L, MCHC 32.6, RDW Std Deviation 47.3 H, RDW Coeff of Monse 15.8 H, Plt Count 740 H, MPV 8.8, Immature Gran % (Auto) 0.600, Neut % (Auto) 83.3 H, Lymph % (Auto) 9.6 L, [place] % (Auto) 4.4, Eos % (Auto) 1.6, Baso % (Auto) 0.5, Absolute Neuts (auto) 15.6 H, Absolute Lymphs (auto) 1.79, Nucleated RBC % 0, Sodium 135 L, Potassium 3.8, Chloride 104, Carbon Dioxide 24.0, Anion Gap 7, BUN 21 H, Creatinine 1.14, Estim Creat Clear Calc 84.46, Est GFR (MDRD) Af Amer 82, Est GFR (MDRD) Non-Af 67, BUN/Creatinine Ratio 18.4, Glucose 109 H, Calcium 9.1, Troponin I High Sens 17 08/05/23 19:35: PT 14.0, INR 1.1, APTT 36.2, Lactic Acid 2.3 H*, Total Bilirubin 1.30 H, Direct Bilirubin 0.30, AST 15, ALT 26, Alkaline Phosphatase 70, Total Protein 7.4, Albumin 3.4, Globulin 4.0 08/06/23 01:30: Lactic Acid 1.7 08/06/23 04:49: WBC 24.6 H, RBC 4.77, Hgb 12.7 L, Hct 40.0, MCV 83.9, MCH 26.6 L , MCHC 31.8 L, RDW Std Deviation 48.9 H, RDW Coeff of Monse 15.9 H, Plt Count 643 H, MPV 9.2, Immature Gran % (Auto) 1.100 H, Neut % (Auto) 81.1 H, Lymph % (Auto) 11.5 L, [place] % (Auto) 5.2, Eos % (Auto) 0.7, Baso % (Auto) 0.4, Absolute Neuts (auto) 19.9 H, Absolute Lymphs (auto) 2.84, Nucleated RBC % 0, Sodium 138, Potassium 3.9, Chloride 109 H, Carbon Dioxide 25.0, Anion Gap 4 L, BUN 17, Creatinine 0.97, Estim Creat Clear Calc 99.55, Est GFR (MDRD) Af Amer 99, Est GFR (MDRD) Non-Af 82, BUN/Creatinine Ratio 17.6, Glucose 127 H, Calcium 8.4 L, T otal Bilirubin 1.60 H, AST 19, ALT 19, Alkaline Phosphatase 57, Total Protein 6.2 L, Albumin 2.8 L, Globulin 3.4, Albumin/Globulin Ratio 0.8 L Microbiology: Microbiology 08/05/23 23:20 Sputum, Expectorated/Coughed Gram Stain - Final 08/05/23 23:43 Mucosa - Nasopharyngeal Respiratory Panel (PCR) - Final 08/05/23 23:20 Urine, Clean Catch Legionella Antigen - Final 08/05/23 23:20 Urine, Clean Catch Streptococcus pneumoniae Antigen (M - Final 08/05/23 19:11 Mucosa - Nose SARS-CoV-2, Influenza & RSV (PCR) - Final Radiography Diagnostic Testing: Radiology Impression Chest X-Ray 08/05/23 19:03 IMPRESSION: Left lower lobe pneumonia. Electronically Signed: Danny Titus MD at 20:24 EDT , D/C Instructions Discharge Diet: No restrictions Meaningful Use Info Meaningful Use Meaningful Use Diagnoses (Choose all that apply): None applicable Ischemic Stroke Statin Dosing Therapy Reference: STATIN DOSE THERAPY REFERENCE: * Patients > 75 years receive moderate or high dose statin therapy. * Patients 75 years or YOUNGER should receive HIGH intensity statin dose unless contraindicated. You will be required to document reason for non-treatment if statin daily dose does not meet guidelines. HIGH DOSE STATIN THERAPY DAILY Atorvastatin > than or = to 40 mg Rosuvastatin > than or = to 20 mg Amlodipine + Atorvastatin > than or = to 2.5/40 mg Ezetimibe + Simvastatin 10/80 mg Simvastatin 80mg Discharge Plan Admission Admit Date/Time: 08/05/23 22:05 Primary Reason for Your Visit: Pneumonia Attending Provider: Sonido Montoya Primary Care Provider: Arline Medina Consulting Providers: Madelyn Mai Instructions Patient Instructions: Pneumonia Community Acquired, Pneumonia Discharge Orders/Prescriptions Prescriptions: New amoxicillin-pot clavulanate 875-125 mg tablet 1 tab PO Q12H Qty: 12 0RF guaifenesin [Mucinex] 600 mg tablet extended release 12hr 600 mg PO BID Qty: 10 0RF Continued dutasteride 0.5 mg capsule 0.5 mg PO DAILY Zyrtec 10 mg capsule 10 mg PO DAILY PRN (Reason: allergy symptoms) atorvastatin 40 MG tablet 40 mg PO QHS Patient Comments: cholesterol lowering carvedilol 12.5 MG tablet 12.5 mg PO BID Patient Comments: blood pressure/heart rate control. losartan 100 MG tablet 100 mg PO DAILY doxazosin 4 mg Tablet 4 mg PO DAILY acetaminophen 500 MG tablet 1,000 mg PO PRN PRN (Reason: Pain) Rx Instructions: Do not take more than 3000 mg of Tylenol in a 24-hour period. montelukast 10 mg tablet 10 mg PO DAILY Referrals / Follow Up: Arline Medina DO [Primary Care Provider] - Within 2 Weeks Disposition Disposition (needs filled in before D/C Order can be placed): Home, Self Care Charges/Coding Visit Charges Inpatient E&M: 18709 Disch Hosp >30min
--- NOTE | 2023-08-06 16:10 | CASEMGMT ---
Patient to be discharge. RN CM in to discuss needs at discharge. Patient does not qualify for home oxygen. Patient denies needs or help at discharge. Patient had no further questions or concerns.
[2023-08-06 16:50] VITALS: BP 156/77; PULSE 58; RESP 12; TEMP 36.4; O2SAT 94
== END 2023-08-06 16:10 | disposition home or self-care (01) ==
LOC: ED 22:12 → PCU 22:18
PROVIDERS: Admitting Provider Family Medicine; Emergency Provider Emergency Medicine
DX: J18.9 Pneumonia, unspecified organism (principal); D47.1 Chronic myeloproliferative disease; E78.00 Pure hypercholesterolemia, unspecified; I12.9 Hypertensive chronic kidney disease with stage 1 through stage 4 chronic kidney disease, or unspecified chronic kidney disease; Z87.891 Personal history of nicotine dependence; N18.2 Chronic kidney disease, stage 2 (mild); K21.9 Gastro-esophageal reflux disease without esophagitis; M19.90 Unspecified osteoarthritis, unspecified site; Z79.899 Other long term (current) drug therapy; G47.33 Obstructive sleep apnea (adult) (pediatric); E66.9 Obesity, unspecified; N40.0 Benign prostatic hyperplasia without lower urinary tract symptoms; Z68.35 Body mass index [BMI] 35.0-35.9, adult; D75.838 Other thrombocytosis
CPT/HCPCS: 36415; 71045; 80048; 80053; 80076; 83605; 84484; 85025; 85610; 85730; 87040; 87070; 87205; 87449; 87631; 87633; 93005; 94640; 94668; 96361; 96365; 96367; 96372; 99221; 99285; J7030; J7040; A4216; G0378